=== PATIENT | male | born 1985 | race Caucasian/White ===

== ENCOUNTER 2018-01-18 10:33 | Emergency (ER) | payer SELFPAY ==
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
[2018-01-18] MEDS ORDERED: HYDROCODONE/APAP 7.5/325 MG TAB ONE (11:41)
--- NOTE | 2018-01-18 11:42 | RAD REPORT ---
EXAM DESCRIPTION: CT - CTFB CLINICAL HISTORY: PAIN COMPARISON: No comparisons TECHNIQUE: Axial 2 mm thick images of the face were obtained with sagittal and coronal reconstructio n images. All CT scans are performed using dose optimization technique as appropriate and may include automated exposure control or mA/KV adjustment according to patient size. FINDINGS: No acute facial bone fracture is seen.The mandible is intact. The globes and orbital contents are grossly unremarkable.Mild mucoperiosteal thickening is seen invol ving the right maxillary antrum and anterior ethmoid air cells. IMPRESSION: Negative for facial bone fracture.
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
== END 2018-01-18 12:11 | disposition home or self-care (01) ==
LOC: ER 10:33
DX: M54.5 Low back pain (principal); V69.49XA Driver of heavy transport vehicle injured in collision with other motor vehicles in traffic accident, initial encounter; F17.210 Nicotine dependence, cigarettes, uncomplicated
CPT/HCPCS: 70450; 70486; 72125; 72131; 76377; 99284

== ENCOUNTER 2019-09-15 21:09 | Emergency (ER) | payer BC ==
--- NOTE | 2019-09-15 22:27 | RAD REPORT ---
EXAM DESCRIPTION: RAD - Chest Single View - 09/15/2019 10:21 pm CLINICAL HISTORY: CHEST PAIN Chest pain. COMPARISON: <Comparisons> FINDINGS: Portable technique limits examination quality. The lungs are grossly clear. The heart is normal in size. No displaced fractures. IMPRESSION: No acute intrathoracic process suspected.
[2019-09-15 22:39] LABS: Protime INR 1.12
[2019-09-15 22:43] LABS: Absolute Lymphocytes (CBC) 3.2 K/uL (0.7-4.9); Basophils % 1.2 % (0-1.3); Hematocrit 44.2 % (39.6-49.0); Lymphocytes % 30.3 % (15.3-44.8); MPV 8.8 fL (7.6-11.3); RBC Red Blood Cell Count 5.15 M/uL (4.33-5.43)
[2019-09-15 22:52] LABS: ALT/SGPT 85 U/L (12-78); AST/SGOT 33 U/L (15-37); Albumin 3.6 g/dL (3.4-5.0); Alkaline Phosphatase 76 U/L (45-117); BUN Blood Urea Nitrogen 10 mg/dL (7-18); Bicarbonate 30 mmol/L (21-32); Bilirubin Direct < 0.1 mg/dL (0-0.2); Bilirubin Total 0.3 mg/dL (0.2-1.0); Glucose Level 105 mg/dL (74-106); Magnesium 2.1 mg/dL (1.8-2.4); NT PRO-BNP 30 pg/mL (<125); Potassium 3.8 mmol/L (3.5-5.1); Protein, Total 7.2 g/dL (6.4-8.2); Sodium Level 141 mmol/L (136-145); Troponin (Emerg Dept Use Only) < 0.02 ng/mL (0.0-0.045)
[2019-09-16] MEDS ORDERED: FENTANYL CITR 100 MCG/2 ML ONE (01:26)
--- NOTE | 2019-09-16 02:47 | EDPHYS ---
Physician Documentation [facility] Name: George Barkley Age: 34 yrs Sex: Male : 1985 Arrival Date: 09/15/2019 Time: 21:10 Bed 16 Private MD: ED Physician Heriberto Carias HPI: 09/15 01:15 This 34 yrs old Male presents to ER via Ambulatory with complaints of Chest snw Pain. 01:15 Onset: The symptoms/episode began/occurred suddenly, 1 week(s) ago, and became worse snw and became persistent. Associated signs and symptoms: Pertinent positives: chest pain. The patient has not experienced similar symptoms in the past. The patient has not recently seen a physician. pt states pain is under "right man boob" and radiates through to back. Historical: - Allergies: 09/14 21:19 No Known Allergies; mg2 - Home Meds: 21:19 HEARTBURN MEDICINE [Active]; mg2 - PMHx: 21:19 None; mg2 - PSHx: 21:19 None; mg2 - Immunization history:: Flu vaccine is up to date. - Social history:: Smoking status: Patient/guardian denies using tobacco, Patient/guardian denies using alcohol, street drugs, IV drugs. ROS: 09/15 01:12 Constitutional: Negative for fever, chills, and weight loss, Eyes: Negative for injury, snw pain, redness, and discharge, ENT: Negative for injury, pain, and discharge, Neck: Negative for injury, pain, and swelling, Cardiovascular: Negative for palpitations and edema, + chest pain Respiratory: Negative for shortness of breath, cough, wheezing, and pleuritic chest pain, : Negative for injury, bleeding, discharge, and swelling, MS/Extremity: Negative for injury and deformity, Skin: Negative for injury, rash, and discoloration, Neuro: Negative for headache, weakness, numbness, tingling, and seizure. Abdomen/GI: Positive for right upper quad pain with radiation through to back. Back: Positive for radiated pain, of the right subscapular area. Exam: 01:12 Constitutional: This is a well developed, well nourished patient who is awake, alert, snw and in no acute distress. Head/Face: Normocephalic, atraumatic. Eyes: Pupils equal round and reactive to light, extra-ocular motions intact. Lids and lashes normal. Conjunctiva and sclera are non-icteric and not injected. Cornea within normal limits. Periorbital areas with no swelling, redness, or edema. ENT: Nares patent. No nasal discharge, no septal abnormalities noted. Tympanic membranes are normal and external auditory canals are clear. Oropharynx with no redness, swelling, or masses, exudates, or evidence of obstruction, uvula midline. Mucous membranes moist. Neck: Trachea midline, no thyromegaly or masses palpated, and no cervical lymphadenopathy. Supple, full range of motion without nuchal rigidity, or vertebral point tenderness. No Meningismus. Chest/axilla: Normal chest wall appearance and motion. Nontender with no deformity. No lesions are appreciated. Cardiovascular: Regular rate and rhythm with a normal S1 and S2. No gallops, murmurs, or rubs. Normal PMI, no JVD. No pulse deficits. Respiratory: Lungs have equal breath sounds bilaterally, clear to auscultation and percussion. No rales, rhonchi or wheezes noted. No increased work of breathing, no retractions or nasal flaring. Back: No spinal tenderness. No costovertebral tenderness. Full range of motion. Skin: Warm, dry with normal turgor. Normal color with no rashes, no lesions, and no evidence of cellulitis. MS/ Extremity: Pulses equal, no cyanosis. Neurovascular intact. Full, normal range of motion. Neuro: Awake and alert, GCS 15, oriented to person, place, time, and situation. Cranial nerves II-XII grossly intact. Motor strength 5/5 in all extremities. Sensory grossly intact. Cerebellar exam normal. Normal gait. Psych: Awake, alert, with orientation to person, place and time. Behavior, mood, and affect are within normal limits. 01:12 Abdomen/GI: Inspection: obese Bowel sounds: normal, Palpation: mild abdominal tenderness, in the right upper quadrant, Indicators: Mehta's sign is positive. Vital Signs: 09/14 21:15 Pulse 91; Resp 18; Temp 97.2; Pulse Ox 97% ; Weight 136.08 kg; Height 6 ft. 0 in. mg2 (182.88 cm); Pain 6/10; 23:30 BP 151 / 99; Pulse 86; Resp 18; Pulse Ox 98% on R/A; Pain 6/10; ls4 09/15 00:09 BP 117 / 73; Pulse 66; Pulse Ox 98% ; ls4 02:35 BP 154 / 55; Resp 16; Pulse Ox 98% ; eb1 09/14 21:15 Body Mass Index 40.69 (136.08 kg, 182.88 cm) mg2 MDM: 09/14 22:01 Patient medically screened. snw 09/15 01:13 Data reviewed: vital signs, nurses notes. Data interpreted: Pulse oximetry: on room air snw is 98 %. Interpretation: acceptable. Counseling: I had a detailed discussion with the patient and/or guardian regarding: the historical points, exam findings, and any diagnostic results supporting the discharge/admit diagnosis, lab results, radiology results. Special discussion: Based on the patient's history, exam, and Dx evaluation, there is no indication for emergent intervention or inpatient Tx. It is understood by the patient/guardian that if the Sx's persist or worsen they need to return immediately for re-evaluation. Based on the patient's Hx, exam, and Dx evaluation, there is no indication for emergent surgery or inpatient Tx. It is understood by the patient/guardian that if the Sx's persist or worsen they need to return immediately for re-evaluation. Based on the history and exam findings, there is no indication for further emergent testing or inpatient evaluation. ED course: on re-exam to talk to pt about rapid rule out trop, he was rolling on the stretcher with severe right flank pain, will CT to eval for stone. 09/14 21:47 Order name: Basic Metabolic Panel snw 09/14 21:47 Order name: CBC with Diff snw 09/14 21:47 Order name: LFT's snw 09/14 21:47 Order name: Magnesium; Complete Time: 22:56 snw 09/14 21:47 Order name: NT PRO-BNP; Complete Time: 22:56 snw 09/14 21:47 Order name: PT-INR; Complete Time: 22:46 snw 09/14 21:47 Order name: Troponin (emerg Dept Use Only); Complete Time: 22:56 snw 09/14 21:47 Order name: XRAY Chest (1 view); Complete Time: 22:36 snw 09/14 21:48 Order name: Basic Metabolic Panel; Complete Time: 22:56 EDMS 09/14 21:48 Order name: CBC with Automated Diff; Complete Time: 22:56 EDMS 09/14 21:48 Order name: Liver (Hepatic) Function; Complete Time: 22:56 EDMS 09/14 22:07 Order name: US Abdomen Limited snw 09/15 00:29 Order name: Troponin (emerg Dept Use Only); Complete Time: 02:15 snw 09/15 01:11 Order name: CT Stone Protocol snw 09/14 21:47 Order name: EKG; Complete Time: 21:48 snw 09/14 21:47 Order name: Cardiac monitoring; Complete Time: 22:00 snw 09/14 21:47 Order name: EKG - Nurse/Tech; Complete Time: 22:00 snw 09/14 21:47 Order name: IV Saline Lock; Complete Time: 22:00 snw 09/14 21:47 Order name: Labs collected and sent; Complete Time: 22:00 snw 09/14 21:47 Order name: O2 Per Protocol; Complete Time: 22:00 snw 09/14 21:47 Order name: O2 Sat Monitoring; Complete Time: 22:00 snw 09/15 00:29 Order name: EKG - Nurse/Tech; Complete Time: 02:25 snw Administered Medications: 01:20 Drug: fentaNYL (PF) 50 mcg Route: IVP; Site: right antecubital; ls4 02:52 Drug: Magnesium Citrate Liquid 300 ml Route: PO; eb1 02:52 Drug: Simethicone 240 mg Route: PO; eb1 03:15 Drug: Bentyl 20 mg Route: PO; eb1 Disposition: 08:52 Co-signature as Attending Physician, Heriberto Carias MD I agree with the assessment and tw4 plan of care. Disposition: 09/16/19 02:47 Discharged to Home. Impression: Chest pain, unspecified, Upper abdominal pain, unspecified. - Condition is Stable. - Discharge Instructions: Abdominal Pain, Adult, Biliary Colic, Adult, Nonspecific Chest Pain, Constipation, Adult, Fat and Cholesterol Restricted Diet, Gastroesophageal Reflux Disease, Adult, Rehydration, Adult. - Prescriptions for Gas- X Extra Strength - take 240 milligram by ORAL route 2-3 times daily; 1 box. Bentyl 20 mg Oral Tablet - take 1 tablet by ORAL route every 6 hours As needed; 20 tablet. promethazine 25 mg Oral Tablet - take 1 tablet by ORAL route every 6 hours As needed; 20 tablet. - Work release form, Medication Reconciliation Form, Thank You Letter, Antibiotic Education, Prescription Opioid Use form. - Follow up: Emergency Department; When: As needed; Reason: Worsening of condition. Follow up: Private Physician; When: 2 - 3 days; Reason: Recheck today's complaints, Continuance of care, Re-evaluation by your physician. Signatures: Dispatcher [employer] EDMS Letty Hughes, PATIENT PARTNER-C PATIENT PARTNER-Csnw Heriberto Carias MD MD tw4 Danie Sheriff RN RN mg2 Anastasiia Angeles RN RN eb1 Jyoti Potter RN RN ls4 Corrections: (The following items were deleted from the chart) 03:40 02:47 09/16/2019 02:47 Discharged to Home. Impression: Chest pain, unspecified; Upper eb1 abdominal pain, unspecified. Condition is Stable. Discharge Instructions: Abdominal Pain, Adult, Nonspecific Chest Pain, Fat and Cholesterol Restricted Diet, Gastroesophageal Reflux Disease, Adult, Rehydration, Adult, Biliary Colic, Adult, Constipation, Adult. Prescriptions for Gas-X Extra Strength - take 240 milligram by ORAL route 2-3 times daily; 1 box, Bentyl 20 mg Oral Tablet - take 1 tablet by ORAL route every 6 hours As needed; 20 tablet, promethazine 25 mg Oral Tablet - take 1 tablet by ORAL route every 6 hours As needed; 20 tablet. and Forms are Work release form, Medication Reconciliation Form, Thank You Letter, Antibiotic Education, Prescription Opioid Use. Follow up: Emergency Department; When: As needed; Reason: Worsening of condition. Follow up: Private Physician; When: 2 - 3 days; Reason: Recheck today's complaints, Continuance of care, Re-evaluation by your physician. snw
--- NOTE | 2019-09-16 02:47 | ER ---
Nurse's Notes [facility] Name: George Barkley Age: 34 yrs Sex: Male : 1985 Arrival Date: 09/15/2019 Time: 21:10 Bed 16 Private MD: Diagnosis: Chest pain, unspecified;Upper abdominal pain, unspecified Presentation: 09/14 21:15 Chief complaint: Patient states: i have central chest pain radiating to the back mg2 started 5 hours ago. i also have shortness of breath and tingling sensation in the left hand. Coronavirus screen: Proceed with normal triage. Patient denies a cough. Patient reports shortness of breath or difficulty breathing. Patient denies measured and/or subjective temperature greater than 100.4F prior to today's visit. Patient denies travel on a cruise ship or to a country the [facility] currently lists as an affected area. Patient denies contact with known and/or suspected case of COVID-19. Ebola Screen: No symptoms or risks identified at this time. Initial Sepsis Screen: Does the patient meet any 2 criteria? No. Patient's initial sepsis screen is negative. Does the patient have a suspected source of infection? No. Patient's initial sepsis screen is negative. Risk Assessment: Do you want to hurt yourself or someone else? Patient reports no desire to harm self or others. Onset of symptoms was September 15, 2019. 21:15 Method Of Arrival: Ambulatory mg2 21:15 Acuity: JESSICA 3 mg2 Triage Assessment: 21:54 General: Appears in no apparent distress. comfortable, Behavior is calm, cooperative. ls4 Historical: - Allergies: 21:19 No Known Allergies; mg2 - Home Meds: 21:19 HEARTBURN MEDICINE [Active]; mg2 - PMHx: 21:19 None; mg2 - PSHx: 21:19 None; mg2 - Immunization history:: Flu vaccine is up to date. - Social history:: Smoking status: Patient/guardian denies using tobacco, Patient/guardian denies using alcohol, street drugs, IV drugs. Screenin:20 Abuse screen: Denies threats or abuse. Denies injuries from another. Nutritional ls4 screening: No deficits noted. Tuberculosis screening: No symptoms or risk factors identified. Fall Risk None identified. Assessment: 21:20 General: Appears in no apparent distress. uncomfortable, Behavior is calm, cooperative. ls4 Pain: Complains of pain in right upper quadrant Pain does not radiate. Pain currently is 7 out of 10 on a pain scale. Pain began gradually. Neuro: No deficits noted. Cardiovascular: Denies diaphoresis, fatigue, lightheadedness, nausea, palpitations, shortness of breath, syncope, vomiting, Capillary refill < 3 seconds Clubbing of nail beds is absent Patient's skin is warm and dry. Rhythm is sinus rhythm. Respiratory: Breath sounds are clear bilaterally. Denies cough, shortness of breath labored breathing. GI: Abdomen is non-distended, obese, Bowel sounds present X 4 quads. Abd is soft and non tender X 4 quads. Reports Pain is 7 out of 10 on a pain scale. pain under right ribs. : No deficits noted. No signs and/or symptoms were reported regarding the genitourinary system. EENT: No deficits noted. No signs and/or symptoms were reported regarding the EENT system. Derm: No deficits noted. No signs and/or symptoms reported regarding the dermatologic system. 22:00 Reassessment: Patient appears in no apparent distress at this time. Patient and/or ls4 family updated on plan of care and expected duration. Pain level reassessed. Patient is alert, oriented x 3, equal unlabored respirations, skin warm/dry/pink. 23:00 Reassessment: Patient appears in no apparent distress at this time. Patient and/or ls4 family updated on plan of care and expected duration. Pain level reassessed. Patient is alert, oriented x 3, equal unlabored respirations, skin warm/dry/pink. 09/15 00:03 Reassessment: Patient appears in no apparent distress at this time. Patient and/or ls4 family updated on plan of care and expected duration. Pain level reassessed. Patient is alert, oriented x 3, equal unlabored respirations, skin warm/dry/pink. 03:00 Reassessment: Patient appears in no apparent distress at this time. No changes from eb1 previously documented assessment. Patient and/or family updated on plan of care and expected duration. Pain level reassessed. Vital Signs: 09/14 21:15 Pulse 91; Resp 18; Temp 97.2; Pulse Ox 97% ; Weight 136.08 kg; Height 6 ft. 0 in. mg2 (182.88 cm); Pain 6/10; 23:30 BP 151 / 99; Pulse 86; Resp 18; Pulse Ox 98% on R/A; Pain 6/10; ls4 09/15 00:09 BP 117 / 73; Pulse 66; Pulse Ox 98% ; ls4 02:35 BP 154 / 55; Resp 16; Pulse Ox 98% ; eb1 09/14 21:15 Body Mass Index 40.69 (136.08 kg, 182.88 cm) mg2 ED Course: 09/14 21:10 Patient arrived in ED. bp1 21:18 Triage completed. mg2 21:19 Arm band placed on. mg2 21:20 roguer on. Pulse ox on. NIBP on. ls4 21:20 Patient has correct armband on for positive identification. Bed in low position. Call ls4 light in reach. Side rails up X2. Verbal reassurance given. Diet: Patient is NPO. 21:37 No apparent distress. ls4 21:37 No provider procedures requiring assistance completed. Inserted saline lock: 18 gauge ls4 in right antecubital area, using aseptic technique. Blood collected. 21:37 Initial lab(s) drawn, by ny, sent to lab. EKG done, by ED staff, reviewed by Heriberto Carias MD. Patient maintains SpO2 saturation greater than 95% on room air. 21:47 Letty Hughes FNP-C [facility]. snw 21:47 Heriberto Carias MD is Attending Physician. snw 21:53 Jyoti Potter, RN is Primary Nurse. ls4 22:00 Basic Metabolic Panel Sent. ls4 22:00 CBC with Diff Sent. ls4 22:00 LFT's Sent. ls4 22:21 XRAY Chest (1 view) In Process Unspecified. EDMS 23:29 US Abdomen Limited In Process Unspecified. EDMS 09/15 02:25 EKG done, by ED staff, reviewed by Heriberto Carias MD. ls4 02:41 CT Stone Protocol In Process Unspecified. EDMS 03:40 IV discontinued, intact, bleeding controlled, No redness/swelling at site. eb1 Administered Medications: 01:20 Drug: fentaNYL (PF) 50 mcg Route: IVP; Site: right antecubital; ls4 02:52 Drug: Magnesium Citrate Liquid 300 ml Route: PO; eb1 02:52 Drug: Simethicone 240 mg Route: PO; eb1 03:15 Drug: Bentyl 20 mg Route: PO; eb1 Outcome: 02:47 Discharge ordered by . lisa 03:39 Discharged to home ambulatory. eb1 03:39 Condition: good 03:39 Discharge instructions given to patient, Instructed on discharge instructions, follow up and referral plans. Demonstrated understanding of Prescriptions given X 3. 03:40 Patient left the ED. eb1 Signatures: Dispatcher [employer] EDMS Letty Hughes, NERY-C READING TUTOR-Csnw Danie Sheriff RN RN mg2 Anastasiia Angeles RN RN eb1 Jyoti Potter RN RN ls4 Faina Feng [facility] Corrections: (The following items were deleted from the chart) 00:09 07/02 21:19 BP 135 / 100; mg2 ls4
[2019-09-16] MEDS ORDERED: SIMETHICONE 80 MG TAB ONE (02:58)
[2019-09-16] MEDS ORDERED: MAGNESIUM CITRATE 300 ML BOT ONE (02:58)
[2019-09-16] MEDS ORDERED: DICYCLOMINE HCL 10 MG CAP ONE (03:32)
[2019-09-16 03:45] VITALS: TEMP 97.2
[2019-09-16 03:47] VITALS: O2SAT 98
[2019-09-16 03:49] VITALS: BP 154/55
--- NOTE | 2019-09-16 10:37 | RAD REPORT ---
EXAM DESCRIPTION: US - Abdomen Exam Limited - 09/15/2019 11:29 pm CLINICAL HISTORY: chest pain;Abd pain COMPARISON: Stone Protocol dated 09/16/2019 FINDINGS: The gallbladder demonstrates significant contraction with probable 7 mm polyp or stone pre sent. No pericholecystic fluid or gallbladder wall thickening. The common bile duct is normal measuri ng 4 mm. The liver demonstrates fatty infiltration. IMPRESSION: Contracted gallbladder with 7 mm stone or polyp suspected.
--- NOTE | 2019-09-16 19:52 | RAD REPORT ---
EXAM DESCRIPTION: CT ABDOMEN PELVIS WITHOUT IV CONTRAST CLINICAL HISTORY: FLANK PAIN TECHNIQUE: Contiguous axial images obtained through the abdomen and pelvis without IV contrast. Chhaya nal and sagittal reformatted images were provided. This exam was performed according to our departmental dose-optimization program, which includes autom ated exposure control, adjustment of the mA and/or kV according to patient size and/or use of iterati ve reconstruction technique. COMPARISON: None available for comparison. FINDINGS: Lung bases: Clear Liver: The liver is enlarged. Gallbladder and biliary system: The gallbladder is contracted. Pancreas: Grossly unremarkable Spleen: Grossly unremarkable Adrenals: Unremarkable Kidneys: No calculi. No hydronephrosis. Bowel: Moderate stool. No obstruction. No appreciable mucosal thickening. Appendix: Normal caliber appendix. No findings to suggest acute appendicitis. Urinary bladder: Unremarkable Reproductive: Unremarkable as visualized Lymph nodes: No pathologically enlarged lymph nodes. Peritoneum: No focal fluid collection. No free air. Vessels: No abdominal aortic aneurysm. Abdominal wall: Unremarkable Bones: Unremarkable IMPRESSION: 1. No renal, ureteral or bladder calculi. No evidence for renal obstruction. 2. Other findings as above. Electronically signed by: Justin Milligan MD 09/16/2019 2:56 AM CDT Due to temporary technical issues with the PACS/Fluency reporting system, reports are being signed by the in house radiologist without review as a courtesy to ensure prompt reporting. The interpreting r adiologist is fully responsible for the content of the report.
--- NOTE | 2019-09-17 08:58 | EKG ---
Test Date: 2019-09-16 Test Time: 02:19:33 Alarm Adjuster: SERINA MEASUREMENT RESULTS: Intervals: Rate: 77 AK: 158 QRSD: 92 QT: 404 QTc: 457 [place]: P: 19 AK: 158 QRS: 35 T: 50 INTERPRETIVE STATEMENTS: Normal sinus rhythm Normal ECG Compared to ECG 09/15/2019 21:54:11 No significant changes Electronically Signed On 09-17-19 08:55:32 CDT by Chuck Mast
--- NOTE | 2019-09-17 08:59 | EKG ---
Test Date: 2019-09-15 Test Time: 21:54:11 Passenger Rate Clerk: HARLEY MEASUREMENT RESULTS: Intervals: Rate: 74 CA: 148 QRSD: 96 QT: 386 QTc: 428 [place]: P: 22 CA: 148 QRS: 40 T: 51 INTERPRETIVE STATEMENTS: Normal sinus rhythm Normal ECG No previous ECG available for comparison Electronically Signed On 09-17-19 08:55:37 CDT by Chuck Mast
== END 2019-09-16 03:40 | disposition home or self-care (01) ==
LOC: ER 21:09
DX: R10.10 Upper abdominal pain, unspecified (principal)
CPT/HCPCS: 93005 ×2; 85025; 80048; 36415; 83735; 85610; 80076; 84484 ×2; 83880; 76377; 74176; 71045; 76705; 96374; 99285; J3010

== ENCOUNTER 2022-05-19 16:07 | Emergency (ER) | payer BC, SELFPAY ==
--- OUTSIDE RECORDS SUMMARY | 2022-05-19 16:12 | XMS REPORT | Continuity of Care Document ---
:1985 Author Organization [facility] t Address [address] [facility] [address] [place] [address] Care Team Providers Name Role Phone PCP, PATIENT DOES NOT HAVE A Primary Care Physician UnavailKevin Reynoso Attending Clinician Unavailable CAMMY SOLANO Attending Clinician Unavailable Cammy Solano PA-C Attending Clinician CHARANJIT ALVAREZ Attending Clinician Unavailable JENNIE OLIVAS Attending Clinician Unavailable SHANNON DAWKINS M.D. Attending Clinician Unavailable Kevin Fernandez Admitting Clinician Unavailable Payers Payer Name Policy Type Policy Number Effective Date Expiration Date S [facility] [id number] 2020 2020 00:00: 00 - OUT OF STATE 00:00:00 Problems Condition Condition Condition Status Onset Resolution Last Treating Co mments Source Name Details Category Date Date Treatment Clinician Date No known No known Disease Unive rs active active ity of problems problems [facility] Lumbar Lumbar Problem Active [facility] back back Physici sprain, sprain, ans initial initial encounter encounter Cervical Cervical Problem Active [facility] muscle muscle Physici strain, strain, ans initial initial encounter encounter Right Right Problem Active [facility] elbow pain elbow pain Ph ysici ans Lateral Lateral Problem Active [facility] epicondyli epicondyli Ph ysici tis of tis of ans right right elbow elbow Allergies, Adverse Reactions, Alerts Allergy Allergy Status Severity Reaction(s) Onset Inactive Treating Comm ents Source Name Type Date Date Clinician Sulfa DA Active [place] ABDOM 2021-03 [facility] (Sulfona PAIN/CRAMPS 0-19 Misael ar mide 00:00: Gant Antibiot 00 [facility] Sulfa DA Active IA ABDOM 2021-03 [facility] (Sulfona PAIN/CRAMPS 0-18 Misael ar mide 00:00: Gant Antibiot 00 Regiona ics) Formerly [facility] NO KNOWN Drug Active Univers ALLERGIE Class ity of S [facility] Social History Social Habit Start Date Stop Date Quantity Comments Source Exposure to Not sure [facility] SARS-CoV-2 (event) [facility] Sex Assigned At [birth year] [facility] 00:00:00 00:00:00 Medical Branch Smoking Status Start Date Stop Date Source Unknown if ever smoked [facility] Medications Ordered Filled Start Stop Current Ordering Indication Dosage Frequency Signature Comments Components Source Medication Medication Date Date Medication? Clinician (SIG) Name Name naproxen Yes naproxen Unive rs 500 mg 1-03 500 mg ity of tablet 13:15: tablet [place] 04 Take 1 Medical tablet BY Branch MOUTH twice a DAY cyclobenzap 2020-03 Yes 10mg Take 10 mg Univers rine 10 mg 2-16 by mouth 3 ity of tablet 00:00: (three) [place] 00 times Medical daily. Branch traMADoL 50 2020-03 Yes 50mg Take 50 mg Univers mg tablet 2-16 by mouth 2 ity of 00:00: (two) [place] 00 times Medical daily. Branch Meloxicam Meloxicam Yes SHANNON TAKE 1 UT 15 MG Oral 15 MG Oral 9-04 CUPIC M.D. TABLET BY Physici Tablet Tablet 00:00: MOUTH ans 00 AFTER MEAL. Cyclobenzap Cyclobenzap Yes SHANNON TAKE 1 UT rine HCl - rine HCl - 9-04 CUPIC M.D. TABLET BY Physici 10 MG Oral 10 MG Oral 00:00: MOUTH ans Tablet Tablet 00 EVERY NIGHT AT BEDTIME methylPREDN methylPREDN Yes SHANNON TAKE UT ISolone 4 ISolone 4 9-04 CUPIC M.D. DIRECTED Physici MG Oral MG Oral 00:00: ans Tablet Tablet 00 Therapy Therapy Pack Pack Cyclobenzap Cyclobenzap Yes SHANNON TAKE 1 UT rine HCl - rine HCl - 1-10 CUPIC M.D. TABLET BY Physici 10 MG Oral 10 MG Oral 00:00: MOUTH ans Tablet Tablet 00 EVERY NIGHT AT BEDTIME Etodolac Etodolac 2019-0 Yes SHANNON TAKE 1 UT 400 MG Oral 400 MG Oral 1-10 CUPIC M.D. TABLET BY Physici Tablet Tablet 00:00: MOUTH ans 00 TWICE A DAY NEEDED Nabumetone Nabumetone 2017- Yes SHANNON TAKE ONE UT 750 MG Oral 750 MG Oral 1-20 CUPIC M.D. TABLET Physici Tablet Tablet 00:00: TWICE A ans 00 DAY WITH FOOD AFTER MEDROL FINISHED Methocarbam Methocarbam 2017- Yes SHANNON 1 TAKE 1 UT ol 750 MG ol 750 MG 1-20 CUPIC M.D. TABLET Physici Oral Tablet Oral Tablet 00:00: BEDTIME ans 00 methylPREDN methylPREDN 2017- Yes SHANNON TAKE UT ISolone 4 ISolone 4 1-20 CUPIC M.D. DIRECTED Physici MG Oral MG Oral 00:00: ans Tablet Tablet 00 Therapy Therapy Pack Pack Immunizations Ordered Filled Immunization Date Status Comments [facility] e Immunization Name Name TDAP 2021-03-[address] [facility] 00:00:00 [facility] SARS-COV-2 COVID-19 2020-06-11 Completed Unive rsity of PFIZER VACCINE 00:00:00 [facility] SARS-COV-2 COVID-19 2020-05-21 Completed Unive rsity of PFIZER VACCINE 00:00:00 [facility] Vital Signs Vital Name Observation Time Observation Value Comments Source Systolic blood 2021-03-18 19:15:00 137 mm[Hg] Univer sity of pressure [facility] Diastolic blood 2021-03-18 19:15:00 83 mm[Hg] Unive rsity of pressure [facility] Heart rate 2021-03-18 19:15:00 70 /min [facility] Body temperature 2021-03-18 19:15:00 36.44 [facility] 2021-03-18 19:15:00 16 /min [facility] Body height 2021-03-18 19:15:00 185.4 cm [facility] Body weight 2021-03-18 19:15:00 70.534 kg [facility] BMI 2021-03-18 19:15:00 20.52 kg/m2 [facility] Oxygen saturation in 2021-03-18 19:15:00 100 /min [facility] blood by [facility] Pulse oximetry Branch Procedures Procedure Date / Time Performed Performing Clinician Beverley bell [id number] 2022-01-01 00:00:00 SIGIFREDOLEATHA CASTILLO Corinne [facility] [id number] 2022-01-01 00:00:00 SIGIFREDO Sun [facility] TDAP VACCINE, >11 2021-03-18 19:24:42 Cammy Solano [facility] YRS, IM Medical Branch Physical Therapy 2018-02-02 00:00:00 UT Physicia ns MRI Spine cervical wo 2018-02-02 00:00:00 UT Phy sicians contrast [id number] MRI Spine lumbar wo 2018-02-02 00:00:00 UT Physi cians contrast [id number] MR Elbow wo contrast 2018-02-02 00:00:00 [place] Phys icians [id number] Encounters Start End Encounter Admission Attending Care Care Encounter Source Date/Time Date/Time Type Type Clinicians Facility Department ID 2021-12-31 2022-01-02 Inpatient TR [facility] [id number] [facility] 19:28:00 19:22:00 Kevin Costello [facility] 2021-03-18 2021-03-18 Outpatient CAMMY HERNANDEZ [facility] [id number] Univers 13:00:00 15:01:19 ity [facility] 2021-03-18 2021-03-18 Office Cammy Solano [id number] Univers 13:00:00 13:30:00 Visit Alfredo PEDIATRIC [id number] ity of [id number] [id number] [facility] PRIMARY [address] Branch CARE CLINIC 2021-03-18 2021-03-18 Outpatient CAMMY HERNANDEZ [facility] [id number] Univers 13:00:00 13:00:00 ity [facility] 2021-03-15 2021-03-15 Outpatient CHARANJIT BELLO [facility] [id number] Univers 14:00:00 14:00:00 [facility] 2021-03-15 2021-03-15 Outpatient CHARANJIT BELLO [facility] [id number] Univers 14:00:00 14:00:00 [facility] 2020-06-11 2020-06-11 Outpatient Lito OLIVAS, [facility] [id number] Univers 07:00:00 07:00:00 JENNIE [facility] 2020-05-21 2020-05-21 Outpatient Lito OLIVAS, [facility] [id number] Univers 12:40:00 12:40:00 JENNIE [facility] 2018-11-17 2018-11-17 Appointmen ARMEN DAWKINS Orthopedics [id number] [place] 10:00:00 10:00:00 t; SHANNON DAWKINS M.D. [facility] Luz Elena [facility] julio c [place] 2018-05-13 2018-05-13 Appointmen ARMEN DAWKINS UTP [id number] [place] 13:15:00 13:15:00 t; SHANNON DAWKINS M.D. Physici ZORAN, ans M.D. 2018-03-25 2018-03-[facility] UTP [id number] [place] 11:15:00 11:15:00 t; SHANNON DAWKINS M.D. [facility] Luz Elena [facility] julio c [place] 2018-03-17 2018-03-17 Appointmen ARMEN DAWKINS [id number] [place] 10:45:00 10:45:00 t; SHANNON DAWKINS M.D. Physici ZORAN, ans M.D. 2018-02-02 2018-02-02 Appointmen ARMEN DAWKINS UTP [id number] [place] 07:30:00 07:30:00 t; SH[facility]. [facility] Results Test Description Test Time Test Comments Results Result Comments Source BASIC METABOLIC PANEL 2022-01-02 08:16:00 Test Item Value Reference Range Interpretation Comme nts SODIUM (test code = NA) 138 mEq/L 134-147 N POTASSIUM (test code = K) 4.2 mEq/L 3.4-5.0 N CHLORIDE (test code = CL) 103 mEq/L 100-108 N CARBON DIOXIDE (test code = CO2) 29 mEq/l 21-33 N ANION GAP (test code = GAP) 10 0-20 N GLUCOSE (test code = GLU) 116 mg/dL 70-110 H BLOOD UREA NITROGEN (test code = 8 mg/dL 7-18 BUN) GLOMERULAR FILTRATION RATE (test 109.4 105-110 N Units of measure = ml/min/1.73 code = GFR) m2 CREATININE (test code = CREAT) 0.8 mg/dL 0.6-1.3 N CALCIUM (test code = CA) 8.6 mg/dL 8.0-10.5 N CBC W/AUTO [id number] 07:02:00 Test Item Value Reference Range Interpretation Comments WHITE BLOOD CELL (test code = 11.2 x10 3/uL 4.5-11.0 H WBC) RED BLOOD CELL (test code = 4.24 x10 6/uL 4.00-5.60 N RBC) HEMOGLOBIN (test code = HGB) 12.6 g/dL 12.5-16.9 N HEMATOCRIT (test code = HCT) 37.3 % 37.5-50.7 L MEAN CELL VOLUME (test code = 88.0 fL 81.0-99.0 N MCV) MEAN CELL HGB (test code = MCH) 29.7 pg 27.0-33.0 N MEAN CELL HGB CONCETRATION 33.8 g/dL 33.0-37.0 N (test code = MCHC) RED CELL DISTRIBUTION WIDTH CV 12.7 % 11.5-14.5 N (test code = RDW) RED CELL DISTRIBUTION WIDTH SD 41.0 fL 37.0-54.0 N (test code = RDW-SD) PLATELET COUNT (test code = 298 x10 3/uL 150-400 N PLT) MEAN PLATELET VOLUME (test code 10.8 fL 7.0-9.0 H = MPV) NEUTROPHIL % (test code = NT%) 78.3 % 56.0-77.0 H IMMATURE GRANULOCYTE % (test 0.4 % 0.0-2.0 N code = IG%) LYMPHOCYTE % (test code = LY%) 12.7 % 14.0-32.0 L MONOCYTE % (test code = MO%) 8.2 % 4.8-9.0 N EOSINOPHIL % (test code = EO%) 0.1 % 0.3-3.7 L BASOPHIL % (test code = BA%) 0.3 % 0.0-2.0 N NUCLEATED RBC % (test code = 0.0 % 0-0 N NRBC%) NEUTROPHIL # (test code = NT#) 8.80 x10 3/uL 2.0-7.6 H IMMATURE GRANULOCYTE # (test 0.04 x10 3/uL 0.00-0.03 H code = IG#) LYMPHOCYTE # (test code = LY#) 1.42 x10 3/uL 1.0-3.8 N MONOCYTE # (test code = MO#) 0.92 x10 3/uL 0.1-0.8 H EOSINOPHIL # (test code = EO#) 0.01 x10 3/uL 0.0-0.2 N BASOPHIL # (test code = BA#) 0.03 x10 3/uL 0.0-0.2 N NUCLEATED RBC # (test code = 0.00 x10 3/uL 0.0-0.1 N NRBC#) MANUAL DIFF REQUIRED (test code NO = MDIFF) DRUGS OF ABUSE SCREEN [id number] 05:13:00 Test Item Value Reference Range Interpretation Comments URN COCAINE (test code POSITIVE NEGATIVE A = COCAURN) URN CANNABINOIDS (test POSITIVE NEGATIVE A code = CANNABURN) URN AMPHETAMINE (test NEGATIVE NEGATIVE code = AMPHETURN) URN BARBITURATE (test NEGATIVE NEGATIVE code = BARBITURN) URN BENZODIAZEPINE NEGATIVE NEGATIVE Cut-off v alue:200 (test code = BENZOURN) ng/mL URN OPIATES (test code POSITIVE NEGATIVE A Cut-o ff value:2000 = OPIATURN) ng/mL URN PHENCYCLIDINE (PCP) NEGATIVE NEGATIVE Cuto ffs:Barbiturates (test code = PHENCURN) 200 ng/mLBenzodiaze pines 200 ng/mLTHC Cannabinoids 50 ng/mLOpiates(Mo rphine) 2000 ng/mLAmphe tamine 1000 ng/mLCocai ne 300 ng/mLPCP phency clidine 25 ng/mL Unconf irmed screening resul ts shouldnot be us ed for non-medical pur poses. COMPREHENSIVE METABOLIC [id number] 05:09:00 Test Item Value Reference Range Interpretation Comments SODIUM (test code = NA) 143 mEq/L 134-147 N POTASSIUM (test code = 3.6 mEq/L 3.4-5.0 N K) CHLORIDE (test code = 107 mEq/L 100-108 N CL) CARBON DIOXIDE (test 30 mEq/l 21-33 N code = CO2) ANION GAP (test code = 10 0-20 N GAP) GLUCOSE (test code = 84 mg/dL 70-110 N GLU) BLOOD UREA NITROGEN 5 mg/dL 7-18 L (test code = BUN) GLOMERULAR FILTRATION 127.6 105-110 H Units of measure = RATE (test code = GFR) ml/mi n/1.73 m2 CREATININE (test code = 0.7 mg/dL 0.6-1.3 N CREAT) TOTAL PROTEIN (test 6.2 g/dL 6.4-8.2 L code = PROT) ALBUMIN (test code = 3.50 g/dL 3.4-5.0 N ALB) CALCIUM (test code = 8.5 mg/dL 8.0-10.5 N CA) BILIRUBIN TOTAL (test 0.40 mg/dL 0.0-1.0 N code = BILT) SGOT/AST (test code = 25 IUnit/L 15-37 N AST) SGPT/ALT (test code = 16 IUnit/L 30-65 L ALT) ALKALINE PHOSPHATASE 132 IUnit/L 20-125 H TOTAL (test code = ALKP) [id number] 05:09:00 Test Item Value Reference Range Interpretation Comments PHOSPHOROUS (test code = PHOS) 4.4 MG/DL 2.5-4.9 N [id number] 05:09:00 Test Item Value Reference Range Interpretation Comments MAGNESIUM (test code = MAG) 1.74 mg/dL 1.80-2.40 L CBC W/AUTO [id number] 04:55:00 Test Item Value Reference Range Interpretation Comments WHITE BLOOD CELL (test code = 8.7 x10 3/uL 4.5-11.0 WBC) RED BLOOD CELL (test code = 4.34 x10 6/uL 4.00-5.60 N RBC) HEMOGLOBIN (test code = HGB) 12.7 g/dL 12.5-16.9 N HEMATOCRIT (test code = HCT) 38.2 % 37.5-50.7 N MEAN CELL VOLUME (test code = 88.0 fL 81.0-99.0 N MCV) MEAN CELL HGB (test code = MCH) 29.3 pg 27.0-33.0 N MEAN CELL HGB CONCETRATION 33.2 g/dL 33.0-37.0 N (test code = MCHC) RED CELL DISTRIBUTION WIDTH CV 13.1 % 11.5-14.5 N (test code = RDW) RED CELL DISTRIBUTION WIDTH SD 42.4 fL 37.0-54.0 N (test code = RDW-SD) PLATELET COUNT (test code = 295 x10 3/uL 150-400 N PLT) MEAN PLATELET VOLUME (test code 9.8 fL 7.0-9.0 H = MPV) NEUTROPHIL % (test code = NT%) 70.1 % 56.0-77.0 N IMMATURE GRANULOCYTE % (test 0.2 % 0.0-2.0 N code = IG%) LYMPHOCYTE % (test code = LY%) 18.2 % 14.0-32.0 N MONOCYTE % (test code = MO%) 7.7 % 4.8-9.0 N EOSINOPHIL % (test code = EO%) 3.1 % 0.3-3.7 N BASOPHIL % (test code = BA%) 0.7 % 0.0-2.0 N NUCLEATED RBC % (test code = 0.0 % 0-0 N NRBC%) NEUTROPHIL # (test code = NT#) 6.07 x10 3/uL 2.0-7.6 N IMMATURE GRANULOCYTE # (test 0.02 x10 3/uL 0.00-0.03 N code = IG#) LYMPHOCYTE # (test code = LY#) 1.58 x10 3/uL 1.0-3.8 N MONOCYTE # (test code = MO#) 0.67 x10 3/uL 0.1-0.8 N EOSINOPHIL # (test code = EO#) 0.27 x10 3/uL 0.0-0.2 H BASOPHIL # (test code = BA#) 0.06 x10 3/uL 0.0-0.2 N NUCLEATED RBC # (test code = 0.00 x10 3/uL 0.0-0.1 N NRBC#) MANUAL DIFF REQUIRED (test code NO = MDIFF) - XR FLUOROSCOPY 0-60 [id number] 00:00:00 [facility] : 1985 Sex: M FAX: Kevin Fernandez [phone] [place]: St: ADM FAX: Melvin Vasquez [facility] [phone] Name: NICKOLAS MULLINS [facility] : 1985 Age/S: 36/M [address] [place] [address] Unit #: [id number] Loc: G.[address] [place] [address]Imzl: Melvin oHyos [facility] Acct: [id number] Dis Date: Status: ADM IN PHONE #: [phone] Exam Date: 01/01/20221902 FAX #: [phone] Reason: LEFT TIB FIB OPEN FRACTURE EXAMS: CPT CODE: [id number] XR FLUOROSCOPY 0-60 MIN 06379 PROCEDURE INFORMATION: Exam: FL Fluoroscopy, Up to 1 Hour Physician Time; Radiologist Not Present For Fluoroscopy Exam date and time: 01/01/2022 6:20 PM Age: 36 years oldClinical indication: Pain; Pain: Left tib fib open fracture TECHNIQUE: Imaging protocol: Fluoroscopy, up to 1 hour physician or other qualified health primary care physician time. This radiologist did not supervise this procedure. Exam supervised by facility personnel. Report for radiation dosage reporting and documentation only. Other technique: Radiologist was not present during this procedure. COMPARISON: No relevant prior studies available. RADIATION DOSE METRICS: Fluoroscopy time (seconds): seconds= 1 MIN 32 SEC Number of fluoro spot images: images= 13 Reference air kerma (DESMOND): 3.96 MGY FINDINGS:Procedural imaging: Fluoroscopic assistance was provided. Radiologist was not present during the procedure. Intraoperative review of these images was performed by the operating physician. Please refer to the procedure report for further details. Notes: Fluoroscopy supervised by facility personnel. Seealso separate procedure report. IMPRESSION: Fluoroscopy dosage documentation. See also separate procedure notes. at 2110 Reported and signed by: Davis Leary M.D. CC: Kevin BENNETT Romain Technologist: CHARLOTTE Tena) Trnscrd Date/Time/By: 01/01/2022 (2110) : By: [email or web address] Orig Print D/T: S: 01/01/2022 (2110) PAGE 1 Signed Report- XR TIBIA/FIBULA 2 V [id number] 00:00:00 [facility] : 1985 Sex: M FAX: Kevin Fernandez DO [phone] [place]: St: [facility] FAX: Melvin Vasquez [facility] [phone] Name: NICKOLAS MULLINS [facility] Corinne Gant : 1985 Age/S: 36/M [address] [place] [address] Unit #: [id number] Loc: [address] [address] Phys: Melvin Hoyos [facility] Acct: [id number] Dis Date: Status: ADM IN PHONE #: [phone] Exam Date: 01/01/20222014 FAX #: [phone] Reason: Postop EXAMS: CPT CODE: [id number] XR TIBIA/[place] [id number] PROCEDURE INFORMATION: Exam: XR Left Tibia and Fibula Exam date and time: 01/01/2022 7:58 PM Age: 36 years old Clinical indication: Other: Postop TECHNIQUE: Imaging protocol: Radiologic exam of the Left tibia and fibula. Views: 2 views. AP and Lateral COMPARISON: CR XR TIBIA/FIBULA 2 V LT 12/31/2021 6:48 PM FINDINGS: Bones/joints: Again seen comminuted fracture through the left tibia along the proximal and mid to distal diaphyses. Intramedullary nail with interlocking screws along the proximal and distal aspect of the tibia. Tibial alignment near anatomic. Again seen fracture of the distal fibular diaphysis. Soft tissues: Soft tissue swelling and emphysema around the tibia and knee. Notes: If there is further concern, recommend follow- up radiographs or MRI for complete assessment. IMPRESSION: 1. Again seen acute, comminuted fracture of the left tibia status post intramedullary nail. 2. Again seen fracture of the distal fibular diaphysis. at 2057 Reported and signed by: Boby Hoskins M.D. CC: Kevin Fernandez DO; Melvin Agrawal [facility] Romain Technologist: CHARLOTTE Lawrence) Trnscrd Date/Time/By: 01/01/2022 (2057) : By: [email or web address] Orig Print D/T: S: 01/01/2022 (2057) PAGE 1 Signed Report- XR HAND 3 + V [id number] 00:00:00 [facility] : 1985 Sex: M FAX: Danica Valentin APRN [place]: St: ADM FAX: Kevin Fernandez DO [phone] Name: NICKOLAS MULLINS [facility] : 1985 Age/S: 36/M [address] [place] [address] Unit #: [id number] Loc: [address] [address] Phys: Danica ValentinP Acct: [id number] Dis Date: Status: ADM IN PHONE #: [phone] Exam Date: FAX #: [phone] Reason: edema s/p JAIL EXAMS: CPT CODE: [id number] XR HAND 3 + V RT [id number] PROCEDURE INFORMATION: Exam: XR Right Hand Exam date and time: 01/01/2022 8:12 PM Age: 36 years old Clinical indication: Edema S/P senior living TECHNIQUE: Imaging protocol: XR Right hand. Views: 3 or more views. Frontal Oblique Lateral COMPARISON: No relevant prior studies available. FINDINGS: Bones/joints: Acute, comminuted fracture through the right hand 5th metacarpal proximally. Intra-articular extension of the comminuted fracture. Soft tissues: Soft tissue swelling around the 5th metacarpal proximally. Notes: If there is further concern, recommend follow-up radiographs or MRI for complete assessment. IMPRESSION: Acute, comminuted fracture through the right hand 5th metacarpal proximally. Intra-articular extension of the fracture. at 2056 Reported and signed by: Boby Hoskins M.D. CC: Danica Valentin; Kevin Fernandez DO Technologist: CHARLOTTE Lawrence) Trnscrd Date/Time/By: 01/01/2022 (2056) : By: [email or web address] Orig Print D/T: S: 01/01/2022 (2056) PAGE 1 Signed Report- XR WRIST 3 + V [id number] 00:00:00 [facility] : 1985 Sex: M FAX: Danica Valentin APRN [place]: St: ADM FAX: Kevin Fernandez DO [phone] Name: HARPREETNICKOLAS [facility] : 1985 Age/S: 36/M [address] [place] [address] Unit #: [id number] Loc: G.[address] [place] [address] Phys: Danica Valentin Acct: [id number] Dis Date: Status: ADM IN PHONE #: [phone] Exam Date: 01/01/20222014 FAX #: [phone] Reason: edema s/p JAIL EXAMS: CPT CODE: [id number] XR WRIST 3 + V RT [id number] PROCEDURE INFORMATION: Exam: XR Right Wrist Exam date and time: 01/01/2022 8:12 PM Age: 36 years old Clinical indication: Other: Edema S/P senior living TECHNIQUE: Imaging protocol: Radiologic exam of the Right wrist. Views: 3 or more views. Frontal Oblique Lateral COMPARISON: No relevant prior studies available. FINDINGS: Bones/joints: There is a fracture at the base of the 5th metacarpal with 4 mm of corticalseparation and periosteal reaction suggesting a subacute fracture. Soft tissues: There are no radio-opaque foreign bodies. Notes: If there is further concern, followup radiographs or MRI of the wrist may be performed for complete assessment. IMPRESSION: Subacute 5th metacarpal base fracture with findings consistent with healing, there is 4 mm of cortical separation of the fracture fragments. at 2056 Reported and signed by: Lena Mark M.D CC: Danica Fernandez DO Technologist: RT Howard(R) Trnscrd Date/Time/By: 01/01/2022 (2056) : By: [email or web address] Orig Print D/T: S: 01/01/2022 (2056) PAGE 1 Signed [id number] 19:23:00 Test Item Value Reference Range Interpretation Comments ALCOHOL (test < 3.0 mg/dL <10 N Ethyl Alcohol code = ALC) Interpretation: 100 mg/dL - Legally Intox icated 300-400 mg/dL - Severely Intoxicated &g t;400 mg/dL - Potenti ally LethalThe pharm acological response to blo od alcohol levels mayvary from individual to i ndividual. Signs of intoxi cationcan be observed at levels of 50-100 mg/dL. R esults are for Medical pur poses only, and not f or Legal orEmployment ev aluation purposes. BASIC METABOLIC [id number] 19:23:00 Test Item Value Reference Range Interpretation Comments SODIUM (test code = NA) 147 mEq/L 134-147 N POTASSIUM (test code = 4.0 mEq/L 3.4-5.0 N K) CHLORIDE (test code = 107 mEq/L 100-108 N CL) CARBON DIOXIDE (test 32 mEq/l 21-33 N code = CO2) ANION GAP (test code = 12 0-20 N GAP) GLUCOSE (test code = 86 mg/dL 70-110 N GLU) BLOOD UREA NITROGEN 8 mg/dL 7-18 N (test code = BUN) GLOMERULAR FILTRATION 109.4 105-110 N Units of measure = RATE (test code = GFR) ml/mi n/1.73 m2 CREATININE (test code = 0.8 mg/dL 0.6-1.3 N CREAT) CALCIUM (test code = 8.7 mg/dL 8.0-10.5 N CA) PROTHROMBIN [id number] 19:12:00 Test Item Value Reference Range Interpretation Comments PROTHROMBIN TIME 15.0 SECONDS 9.3-12.9 H PATIENT (test code = PTP) INTERNATIONAL NORMAL 1.3 0.8-1.2 H TARGET INR BY RATIO (test code = INDICATIO N Indication INR) INR1. Prophylax is of venous thrombos is 2.0 - 3.0 (orthoped ic surgery), Proph ylaxis of venous throm bosis (other than hig h-risk surgery), Treat ment of Deep Vein Thrombosis/Pulm onary Embolism, Preve ntion of systemic emb olism - Tissue heart va lves, Acute Myocardia l Infarction (to prevent systemic emboli sm), Valvular heart disease, Atrial Fibrillation, Bileaflet mecha nical valve in aortic position.2. Mec hanical prosthetic valv es (high risk), 2 .5 - 3.5 Presence of Lupus Anticoagulant o r Antiphospholipi d Antibodies, Pre vention of systemic emb olism - Acute Myocardia l Infarction (to prevent recurrent infar ct). THROMBOPLASTIN TIME [id number] 19:12:00 Test Item Value Reference Range Interpretation Comments THROMBOPLASTIN TIME 34.7 Seconds 25.0-39.5 N Therape utic Range: PARTIAL (test code = 50.4 - 88.3 Seconds PTT) Effective 06/29/2018 CBC W/AUTO [id number] 19:01:00 Test Item Value Reference Range Interpretation Comments WHITE BLOOD CELL (test code = 5.4 x10 3/uL 4.5-11.0 N WBC) RED BLOOD CELL (test code = 4.66 x10 6/uL 4.00-5.60 N RBC) HEMOGLOBIN (test code = HGB) 13.8 g/dL 12.5-16.9 N HEMATOCRIT (test code = HCT) 40.9 % 37.5-50.7 N MEAN CELL VOLUME (test code = 87.8 fL 81.0-99.0 N MCV) MEAN CELL HGB (test code = MCH) 29.6 pg 27.0-33.0 N MEAN CELL HGB CONCETRATION 33.7 g/dL 33.0-37.0 N (test code = MCHC) RED CELL DISTRIBUTION WIDTH CV 13.0 % 11.5-14.5 N (test code = RDW) RED CELL DISTRIBUTION WIDTH SD 41.7 fL 37.0-54.0 N (test code = RDW-SD) PLATELET COUNT (test code = 302 x10 3/uL 150-400 N PLT) MEAN PLATELET VOLUME (test code 9.1 fL 7.0-9.0 H = MPV) NEUTROPHIL % (test code = NT%) 61.9 % 56.0-77.0 N IMMATURE GRANULOCYTE % (test 0.4 % 0.0-2.0 N code = IG%) LYMPHOCYTE % (test code = LY%) 27.2 % 14.0-32.0 N MONOCYTE % (test code = MO%) 6.3 % 4.8-9.0 N EOSINOPHIL % (test code = EO%) 3.3 % 0.3-3.7 N BASOPHIL % (test code = BA%) 0.9 % 0.0-2.0 N NUCLEATED RBC % (test code = 0.0 % 0-0 N NRBC%) NEUTROPHIL # (test code = NT#) 3.35 x10 3/uL 2.0-7.6 N IMMATURE GRANULOCYTE # (test 0.02 x10 3/uL 0.00-0.03 N code = IG#) LYMPHOCYTE # (test code = LY#) 1.47 x10 3/uL 1.0-3.8 N MONOCYTE # (test code = MO#) 0.34 x10 3/uL 0.1-0.8 N EOSINOPHIL # (test code = EO#) 0.18 x10 3/uL 0.0-0.2 N BASOPHIL # (test code = BA#) 0.05 x10 3/uL 0.0-0.2 N NUCLEATED RBC # (test code = 0.00 x10 3/uL 0.0-0.1 N NRBC#) MANUAL DIFF REQUIRED (test code NO = MDIFF) - XR TIBIA/FIBULA 2 V [id number] 00:00:00 [facility] 1985 Sex: M FAX: Ramy Sadler MD [place]: St: ADM Name: NICKOLAS MULLINS [facility] : 1985 Age/S: 36/M [address] [place] [address] Blvd Unit #: [id number] Loc: [place] [address] Phys: Ramy Sadler MD Acct: [id number] Dis Date: Status: ADM IN PHONE #: [phone] Exam Date: 12/31/2021 1905 FAX #: [phone] Reason: LEG PAIN EXAMS: CPT CODE: [id number] XR TIBIA/FIBULA 2 V LT [id number] PROCEDURE INFORMATION: Exam: XR Left Tibia and Fibula Exam date and time: 12/31/2021 6:48 PM Age: 36 years old Clinical indication: Pain; Lower leg; Left; Additional info: Leg pain TECHNIQUE: Imaging protocol: Radiologic exam of the Left tibia and fibula. Views: 2 views. AP and Lateral COMPARISON: No relevant prior studies available. FINDINGS: Bones/joints: Acute, comminuted fracture of the left tibia along the proximal and mid to distal diaphyses. No significant displacement of the dominant middle fracture fragment of the tibia. Approximately 2.0 cm lateral displacement of the distal tibial fracture fragment. Acute, comminuted fracture of the distal fibular diaphysis with approximately 4 mm lateral displacement of the distal fracture fragment. Soft tissues: Soft tissue swelling around the mid to distal tibia and fibula. Notes: If there isfurther concern, recommend follow- up radiographs or MRI for complete assessment. IMPRESSION: Acute, comminuted fractures of the left tibia and fibula. at 194 Reported and signed by: Boby Hoskins M.D. CC: Ramy Sadler MD Technologist: Aida Noriega, RT(R); Karishma Hernandez RT(R); ... Trnscrd Date/Time/By: 12/31/2021 (1948) : By: [email or web address] Orig Print D/T: S: 12/31/2021 (1949) PAGE 1 Signed Report- XR CHEST 1 [id number] 00:00:00 [facility] : 1985 Sex: M FAX: Ramy Sadler MD [place]: St: ADM Name: NICKOLAS MULLINS [facility] : 1985 Age/S: 36/M [address] [place] [address] Unit #: [id number] Loc: [place] [address] Phys: Ramy Sadler MD Acct: [id number] Dis Date: Status: ADM IN PHONE #: [phone] Exam Date: 12/31/20211904 FAX #: [phone] Reason: CHEST PAIN EXAMS: CPT CODE: [id number] XR CHEST 1 V [id number] PROCEDURE INFORMATION: Exam: XR Chest Exam date and time: 12/31/2021 6:40 PM Age: 36 years old Clinical indication: Pain; Chest pressure; Chest pain TECHNIQUE: Imaging protocol: Radiologic exam of the chest. Views: 1 view. COMPARISON: No relevant prior studies available. FINDINGS: Lungs: No focal consolidation. Pleural spaces: No pleural effusion. Nopneumothorax. Heart/Mediastinum: Cardiac and mediastinal contours within normal limits. Bones/joints: No acute osseous abnormality. IMPRESSION: No radiographic evidence of acute cardiopulmonary disease. at 1950 Reported and signed by: Cassie Bernal CC: Ramy Sadler MD Technologist: RT Nas(R) Trnscrd Date/Time/By: 12/31/2021 (1950) : By: [email or web address] Orig Print D/T: S: 12/31/2021 (1950) PAGE 1 Signed Report- XR PELVIS 1/2 VIEWS 2021-12-31 00:00:00 [facility] : 1985 Sex: M FAX: Ramy Sadler MD [place]: St: REG Name: NICKOLAS MULLINS [facility] : 1985 Age/S: 36/M [address] [place] [address] BlvdUnit #: [id number] Loc: [place] [address] Phys: Ramy Sadler MD Acct: [id number] Dis Date: Status: REG ER PHONE #: [phone] Exam Date: 12/31/2021 190 FAX #: [phone] Reason: PELVIC PAIN EXAMS: CPT CODE: [id number] XR PELVIS 1/2 VIEWS 59997 PROCEDURE INFORMATION: Exam: XR Pelvis Exam date and time: 12/31/2021 6:48 PM Age: 36 years old Clinical indication: Pelvic pain TECHNIQUE: Imaging protocol: Radiologic exam of the pelvis. Views: 1 or 2 view. Other technique: A frontal radiographof the pelvis was obtained. COMPARISON: No relevant prior studies available. FINDINGS: Bones/joints:The pelvic ring is intact. There is no evidence of fracture or other acute process. The hips are grossly normal. If there is a suspected abnormality or injury involving either hip, specific radiographsof the affected hip are suggested. There are postoperative change involving the lower lumbosacral spine. Soft tissues: Unremarkable. Notes: If there is further concern, recommend follow-up radiographs or MRI for complete assessment. IMPRESSION: 1. No osseous abnormalities are seen involving the pelvis. 2. Postoperative change involving the lower lumbosacral spine. at 1922 Reported and signed by: Octaviano Amador M.D. CC: Delphine Sadler MD Technologist: RT Nas(R) Trnscrd Date/Time/By: 12/31/2021 (1921) : By: [email or web address] Orig Print D/T: S: 12/31/2021 (1921) PAGE 1 Signed Report
[2022-05-19] MEDS ORDERED: LORazepam 2 MG/ML VIAL ONE ×2 (16:18→16:40)
[2022-05-19] MEDS ORDERED: NA CHLORIDE 0.9% 1,000 ML ONE (16:18)
[2022-05-19 16:39] LABS: Absolute Lymphocytes (CBC) 3.5 K/uL (0.7-4.9); Hematocrit 42.8 % (39.6-49.0); Lymphocytes % 15.8 % (15.3-44.8); RBC Red Blood Cell Count 5.09 M/uL (4.33-5.43)
[2022-05-19 16:42] LABS: Protime INR 1.06
[2022-05-19 16:56] LABS: SARS-CoV-2 Antigen Rapid Res Negative (Negative)
[2022-05-19] MEDS ORDERED: SUCCINYLCHOLINE 20 MG/ML (10 ML) IV ONE (17:26)
[2022-05-19] MEDS ORDERED: Ringers Lactate 1,000 ML IV ONE ×3 (17:26→21:23)
[2022-05-19 17:27] LABS: ALT/SGPT 30 U/L (16-61); AST/SGOT 20 U/L (15-37); Albumin 3.7 g/dL (3.4-5.0); Alkaline Phosphatase 222 U/L (45-117); BUN Blood Urea Nitrogen 7 mg/dL (7-18); Bicarbonate 24 mmol/L (21-32); Bilirubin Direct 0.2 mg/dL (0-0.2); Bilirubin Total 0.4 mg/dL (0.2-1.0); Glomerular Filtration Rate 113 ml/min (=/>90); Glucose Level 98 mg/dL (74-106); Potassium 3.9 mmol/L (3.5-5.1); Sodium Level 139 mmol/L (136-145)
[2022-05-19] MEDS ORDERED: propofoL 1,000 MG/100 ML VIAL IV ONE ×2 (17:27→20:47)
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
[2022-05-19] MEDS ORDERED: MIDAZOLAM HCL 2 MG/2 ML INJ ONE (17:54)
[2022-05-19 18:51] LABS: Arterial Blood Carboxyhemoglob 0.5 % (0-1.5); Blood Gas Oxyhemoglobin 91.7 % (94-97); Blood O2 Saturation 94.8 % (92-98.5)
[2022-05-19] MEDS ORDERED: MIDAZOLAM HCL 100 MG in NA CHLORIDE 0.9% 80 ML IV SCH (19:00)
[2022-05-19 19:20] LABS: Urine Blood Negative (Negative); Urine Glucose Negative (Negative); Urine Protein Negative (Negative); Urine pH 5.5 (5.0-7.0)
[2022-05-19 19:41] LABS: Barbiturates NEGATIVE (NEGATIVE); Benzodiazepines POSITIVE (NEGATIVE); Cocaine POSITIVE (NEGATIVE); METHAMPHETAM NEGATIVE (NEGATIVE); Methadone NEGATIVE (NEGATIVE); Opiates NEGATIVE (NEGATIVE); Phencyclidine NEGATIVE (NEGATIVE); THC Cannibis NEGATIVE (NEGATIVE)
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
[2022-05-19 20:06] LABS: Blood Morphology Comment NOTED (NOT SEEN); Platelet Estimate INCR; Poikilocytosis 1+
--- NOTE | 2022-05-19 20:07 | RAD REPORT ---
EXAM DESCRIPTION: Amber Single View05/19/2022 6:51 pm CLINICAL HISTORY: Device placement endotracheal tube placement COMPARISON: 2019 FINDINGS: The lungs appear clear of acute infiltrate. The heart is normal size Endotracheal tube has its tip 5 centimeters into the stomach Endotracheal tube at the level of aortic arch
[2022-05-19 23:30] VITALS: O2SAT 100
[2022-05-19 23:38] VITALS: BP 129/94; TEMP 98.2
--- NOTE | 2022-05-20 17:34 | EKG ---
Test Date: 2022-05-19 Test Time: 18:00:45 Blocker Hand: BP MEASUREMENT RESULTS: Intervals: Rate: 133 DC: 136 QRSD: 84 QT: 314 QTc: 467 [place]: P: 68 DC: 136 QRS: 69 T: 55 INTERPRETIVE STATEMENTS: Sinus tachycardia Cannot rule out Anterior infarct, age undetermined Abnormal ECG Compared to ECG 09/16/2019 02:19:33 Myocardial infarct finding now present Sinus rhythm no longer present Electronically Signed On 05-20-22 17:31:59 [employer] by Vignesh Velez
== END 2022-05-19 22:54 ==
LOC: ER 16:07
PROC: 0BH17EZ Insertion of Endotracheal Airway into Trachea, Via Natural or Artificial Opening (ICD-10-PCS; principal; 2022-05-19)
PROC: 5A1935Z Respiratory Ventilation, Less than 24 Consecutive Hours (ICD-10-PCS; 2022-05-19)
DX: R41.82 Altered mental status, unspecified (principal); T40.5X1A Poisoning by cocaine, accidental (unintentional), initial encounter; J96.90 Respiratory failure, unspecified, unspecified whether with hypoxia or hypercapnia
CPT/HCPCS: 31500; 36415; 51702; 70450; 71045; 72125; 80048; 80076; 80307; 81003; 82550; 82805; 83605; 85025; 85610; 85730; 87040; 87811; 93005; 94002; 96361; 96365; 96366; 96375; 99285; G0480; J0330; J2250; J2704; J7030; J7120

== ENCOUNTER 2022-08-22 16:20 | Emergency (ER) | payer SELFPAY ==
--- OUTSIDE RECORDS SUMMARY | 2022-08-22 16:24 | XMS REPORT | Continuity of Care Document ---
:1985 Author Organization Formerly [facility] t Address [address] [facility] [address] [place] [id number] Care Team Providers Name Role Phone CAMMY SOLANO Primary Care Physician Unavailable Tri Fletcher LVN Attending Clinician KARIS HUNTLEY Attending Clinician Unavailable KARIS HUNTLEY Attending Clinician Unavailable Karis Huntley DO Attending Clinician Kevin Fernandez Attending Clinician Unavailable CAMMY SOLANO Attending Clinician Unavailable Cammy Solano PA-C Attending Clinician CHARANJIT ALVAREZ Attending Clinician Unavailable JENNIE OLIVAS Attending Clinician Unavailable SHANNON DAWKINS M.D. Attending Clinician Unavailable KARIS HUNTLEY Admitting Clinician Unavailable Karis Huntley DO Admitting Clinician Kevin Fernandez Admitting Clinician Unavailable Payers Payer Name Policy Type Policy Number Effective Date Expiration Date S [facility] MEDICAID PENDING PENDING 2022 2022 00:00:00 00:00:00 [place] - [id number] 2020 2020 OUT OF STATE 00:00:00 00:00:00 Problems Condition Condition Condition Status Onset Resolution Last Treating Co mments Source Name Details Category Date Date Treatment Clinician Date Drug Drug Disease Active Univers overdose overdose 3-07 ity of of of 00:00: [place] undetermin undetermin 00 Me dical ed intent, ed intent, Br anch initial initial encounter encounter No known No known Disease Unive rs active active ity of problems problems [facility] Lumbar Lumbar Problem Active [place] back back [...] Type Date Date Clinician Sulfa DA Active [place] ABDOM 2021-03 [facility] (Sulfona PAIN/CRAMPS 0-19 Misael ar mide 00:00: [place] Antibiot 00 Regiona ics) [facility] Sulfa DA Active [place] ABDOM 2021-03 [facility] (Sulfona PAIN/CRAMPS 0-18 Misael ar mide 00:00: [place] Antibiot 00 Regiona ics) [facility] NO KNOWN Drug Active Univers ALLERGIE Class ity of S [facility] Social History Social Habit Start Date Stop Date Quantity Comments Source History [facility]OH [facility] Medical B ranch Together History SDOH [facility] Medica l Branch History SDOH Social Unive rsity of [facility] h Membership History SDOH Social Unive rsity of [facility] Meetings [facility] freddy Branch Exposure to 2022-05-12 2022-05-22 Not sure [facility] SARS-CoV-2 (event) 00:00:00 14:12:00 Medica l Branch History SDOH Alcohol 2022-05-20 2022-05-20 3 [facility] Frequency 00:00:00 00:00:00 Medical Branch History SDOH Alcohol 2022-05-20 2022-05-20 1 [facility] Std Drinks 00:00:00 00:00:00 Medical Branch History SDOH Alcohol 2022-05-20 2022-05-20 1 Univ ersity [facility] Binge 00:00:00 00:00:00 Medical Branch History SDOH Social 2022-05-20 2022-05-20 5 [facility] Connections Phone 00:00:00 00:00:00 Medical Branch History SDOH Social 2022-05-20 2022-05-20 7 [facility] [place] Connections Living 00:00:00 00:00:00 Medica l Branch History SDOH Physical 2022-05-20 2022-05-20 0 [facility] Activity DPW 00:00:00 00:00:00 Medical Bran ch History SDOH Physical 2022-05-20 2022-05-20 0 [facility] Activity MPS 00:00:00 00:00:00 Medical Bran ch History SDOH 2022-05-20 2022-05-[address] [facility] Financial 00:00:00 00:00:00 Medical Branch History SDOH Food 2022-05-20 2022-05-20 1 [facility] 00:[facility]:00 00:00:00 Medical Branch History SDOH Food 2022-05-20 2022-05-20 1 Univers ity [facility] Scarcity 00:00:00 00:00:00 Medical Branch History SDOH 2022-05-20 2022-05-[address] [facility] Transport Med 00:00:00 00:00:00 Medical Bra nch History SDOH 2022-05-20 2022-05-[address] [facility] Transport Non-Med 00:00:00 00:00:00 Medical Branch Sex [birth year] [facility] 00:00:00 00:00:00 Medical Branch Smoking Status Start Date Stop Date Source Tobacco smoking consumption [facility] Medical unknown Branch Medications Ordered Filled Start Stop Current Ordering Indication Dosage Frequency Signature Comments Components Source Medication Medication Date Date Medication? Clinician (SIG) Name Name naproxen Yes naproxen Unive rs 500 mg 3-09 500 mg ity of tablet 14:48: tablet [place] 25 Take 1 Medical tablet BY Branch MOUTH twice a DAY naproxen 2023-0 Yes naproxen Unive rs 500 mg 05-22 500 mg ity of tablet 14:48: tablet [place] 25 Take 1 Medical tablet BY Branch MOUTH twice a DAY buprenorphi 2022- No 4mg 4 mg, Univ ers ne HCL 05-22 Sublingual ity of (SUBUTEX) 09:00: 08:42 , ONCE, 1 [place] sublingual 00 :00 dose, On Medic al tablet 4 mg Olivia 05/22/22 Br anch at 0300, Routine buprenorphi Yes 4mg 4 mg, Unive rs ne HCL 05-22 Sublingual ity of (SUBUTEX) 04:30: , BID, [place] sublingual 00 First dose Med ical tablet 4 mg (after Branch last modificati on) on Thu05/21/22 at 2230, Until Discontinu ed, Routine nicotine Yes 1{patch 1 Patch, Un miles (NICODERM) 05-22 } Topical, ity o f 21 mg/24 hr 04:00: Administer [place] patch 1 00 over 24 Medical Patch Hours, Branch Q24H, First dose on Thu05/21/22 at 2200, Until Discontinu ed, Routine phenoL Yes 1{spray 1 [place], Univ ers (SORE 05-22 } Oral, PRN, ity of THROAT 03:31: Starting [place] (PHENOL)) 10 on Thu Medical 1.4 % spray 05/21/22 at [facility] bottle 1 2131, [place] Until Discontinu ed, Routine, Sore throat buprenorphi 2022- No [id number] 4mg Place 2 Univers ne HCL 2 mg 05-22 tablets ity of sublingual 00:00: 04:59 under the [place] tablet 00 :00 tongue in Medical the Branch morning and 2 tablets in the evening. Do all this for 4 days. propranoloL 2022- No [id number] 10mg Take 1 Univers 10 mg 05-22 tablet by ity of tablet 00:00: 04:59 mouth in [place] 00 :00 the Medical morning Branch and 1 tablet in the evening. Do all this for 4 days. buprenorphi 0 2022- No [id number] 4mg Place 2 Univers ne HCL 2 mg 05-22 tablets ity of sublingual 00:00: 04:59 under the [place] tablet 00 :00 tongue in Medical the Branch morning and 2 tablets in the evening. Do all this for 4 days. propranoloL 2022- No [id number] 10mg Take 1 Univers 10 mg 05-22 tablet by ity of tablet 00:00: 04:59 mouth in [place] 00 :00 the morning Branch and 1 tablet in the evening. Do all this for 4 days. buprenorphi 2022- No 4mg 4 mg, Univ ers ne HCL 05-21 Sublingual ity of (SUBUTEX) 21:19: 21:52 , ONCE, 1 [place] sublingual 00 :00 dose, On Medic al tablet 4 mg Thu05/21/22 Br anch at 1530, Routine NaCl 0.9% Yes 10mL 10 mL, Univer s (NS) 3-08 Slow IV ity of injection 20:41: Push, PRN, [place] 10 mL 03 Starting Medical on Thu05/21/22 at 1441, Until Discontinu ed, Routine, line maintenanc e lidocaine Yes 5mL 5 mL, Univers 1% (PF) 308 Subcutaneo ity of (XYLOCAINE) 20:41: [place], PRN, [place] injection 5 02 Starting Medi freddy mL on Thu05/21/22 at 1441, Until Discontinu ed, Routine, Local anesthesia dexMEDEtomi 2022- No .2ug/kg 0.2-1.5 Univers dine 200 05-21-09 /h mcg/kg/hr ity o f mcg in 0.9 20:04: 01:21 ?70 kg [place] % NaCl 50 27 :42 (3.5-26.25 Medi freddy mL mL/hr), IV Branch (PRECEDEX) Infusion, RTU IV TITRATE, infusion Sedation-R ASS score (0 to -1), Starting on Thu05/21/22 at 1404
In itiate infusion at 0.2 mcg/kg/hr and titrate by 0.1 mcg/kg/hr every 30 minutes to goal sedation score. Maximum dose = 1.5 mcg/kg/hr. If goal not maintained at maximum allowed dose, contact prescriber .
ketamine 2022- No 3ug/kg/ 3 Unive rs (KETALAR) 05-21-08 min mcg/kg/min ity of 200 mg in 17:00: 19:04 ?70 kg [place] NaCl 0.9% 00 :44 (6.3 Medical (NS) 100 mL mL/hr), IV Br anch ICU ADULT Infusion, PAIN CONTINUOUS infusion , Starting on Thu05/21/22 at 1100
No elsie physician of psychotomi metic effects: hallucinat ions, vivid dreams, dysphoria. To be administer ed in the ICU, OR, and ED only.
heparin Yes 5000U 5,000 Univers (porcine) 3-08 Units, ity of injection 14:00: [place]cutaneo [place] 5,000 Units 00 us, Q12H, Med ical First dose Branch on Thu05/21/22 at 0800, Until Discontinu ed, Routine propofoL IV 2022- No 5ug/kg/ 5-50 Un miles infusion 05-21-09 min mcg/kg/min ity of 10:36: 01:21 ?70 kg [place] 22 :18 (2.1-21 Medical mL/hr), IV Branch Infusion, TITRATE, Sedation-R ASS score (-2 to -3), Starting on Thu05/21/22 at 0436
In itiate infusion at 5 mcg/kg/min and titrate by 5 mcg/kg/min every 30 seconds to 10 minutes to goal sedation score. Maximum dose = 50 mcg/kg/min . If goal not maintained at maximum allowed dose, contact prescriber . &nbs p;Tubing and unused portions of vials should be discarded after 12 hours.
midazolam 2022- No 1mg/h 1-10 mg/hr Univers (VERSED) 05-21-09 (1-10 ity of STD 50mg in 10:36: 01:21 mL/hr), IV [place] NaCl 0.9% 15 :18 Infusion, Medic al (NS) 50 mL TITRATE, Branc h infusion Sedation-R RTU ASS score (-2 to -3), Starting on Thu05/21/22 at 0436
In itiate infusion at 1 mg/hr and titrate by 1 mg/hr every 3 minutes to 10 minutes to goal sedation score. Maximum dose = 10 mg/hr.&nbs p; If goal not maintained at maximum allowed dose, contact prescriber .
acetaminoph Yes 650mg 650 mg, Un miles en 05-20 Oral, ity of (TYLENOL) 23:45: Q6HPRN, [place] 160 mg/5 mL 53 Starting Medi freddy oral liquid on Thu 650 mg 05/20/22 at 1745, Until Discontinu ed, Routine, Temp > 38.5 C ketamine 2022- No 2ug/kg/ 2 Unive rs (KETALAR) 05-20 03-08 min mcg/kg/min ity of 200 mg in 21:00: 16:51 ?70 kg [place] NaCl 0.9% 00 :18 (4.2 Medical (NS) 100 mL mL/hr), IV Br anch ICU ADULT Infusion, PAIN CONTINUOUS infusion , Starting on Thu05/20/22 at 1500
No elsie physician of psychotomi metic effects: hallucinat ions, vivid dreams, dysphoria. To be administer ed in the ICU, OR, and ED only.
pantoprazol Yes 40mg 40 mg, Univ ers e 05-20 Enteral, ity of (PROTONIX) 20:00: DAILY, [place] 2 mg/mL 00 First dose Medica l oral on Thu suspension 05/20/22 at 40 mg 1400, Until Discontinu ed, Routine heparin 2022- No 5000U 5,000 Univers (porcine) 05-20-07 Units, ity of injection 14:00: 14:10 Subcutaneo [place] 5,000 Units 00 :13 us, Q12H, Med ical First dose Branch on Thu05/20/22 at 0800, Until Discontinu ed, Routine propofoL IV 2022- No 5ug/kg/ 5-50 Un miles infusion 05-20 03-08 min mcg/kg/min ity of 08:42: 10:36 ?70 kg [place] 36 :34 (2.1-21 Medical mL/hr), IV Branch Infusion, TITRATE, Sedation-R ASS score (0 to -1), Starting on Thu05/20/22 at 0242
In itiate infusion at 5 mcg/kg/min and titrate by 5 mcg/kg/min every 30 seconds to 10 minutes to goal sedation score. Maximum dose = 50 mcg/kg/min . If goal not maintained at maximum allowed dose, contact prescriber . &nbs p;Tubing and unused portions of vials should be discarded after 12 hours.
hydralAZINE 2022- No 10mg 10 mg, Uni vers (APRESOLINE 05-20- Slow IV ity of ) injection 08:30: 07:51 Push, [place] 10 mg 00 :00 ONCE, 1 Medical dose, On Branch Thu05/20/22 at 0230, STAT midazolam 2022- No 1mg/h 1-10 mg/hr Univers (VERSED) 05-20 (1-10 ity of STD 50mg in 07:18: 10:36 mL/hr), IV [place] NaCl 0.9% 22 :34 Infusion, Medic al (NS) 50 mL TITRATE, Branc h infusion Sedation-R RTU ASS score (0 to -1), Starting on Thu05/20/22 at 0118
In itiate infusion at 1 mg/hr and titrate by 1 mg/hr every 3 minutes to 10 minutes to goal sedation score. Maximum dose = 10 mg/hr.&nbs p; If goal not maintained at maximum allowed dose, contact prescriber .
naproxen Yes naproxen Unive rs 500 mg 1-03 500 mg ity of tablet 13:15: tablet [place] 04 Take 1 Medical tablet BY Branch MOUTH twice a DAY cyclobenzap 2020-03 Yes 10mg Take 10 mg Univers rine 10 mg 2-16 by mouth 3 ity of tablet 00:00: (three) [place] 00 times Medical daily. Branch traMADoL 50 2020-03 Yes 50mg Take 50 mg Univers mg tablet 2-16 by mouth 2 ity of 00:00: (two) [place] 00 times Medical daily. Branch cyclobenzap 2020-03 Yes 10mg Take 10 mg Univers rine 10 mg 2-16 by mouth 3 ity of tablet 00:00: (three) [place] 00 times Medical daily. Branch traMADoL 50 2020-03 Yes 50mg Take 50 mg Univers mg tablet 2-16 by mouth 2 ity of 00:00: (two) [place] 00 times Medical daily. Branch cyclobenzap 2020-03 Yes 10mg Take 10 mg Univers rine 10 mg 2-16 by mouth 3 ity of tablet 00:00: (three) [place] 00 times Medical daily. Branch traMADoL 50 2020-03 Yes 50mg Take 50 mg Univers mg tablet 2-16 by mouth 2 ity of 00:00: (two) [place] 00 times Medical daily. Branch Meloxicam Meloxicam [...] 00 EVERY NIGHT AT BEDTIME Etodolac Etodolac Yes SHANNON TAKE 1 [place] 400 MG Oral 400 MG Oral 1-10 CUPIC M.D. TABLET BY Physici Tablet Tablet 00:00: MOUTH ans 00 TWICE A DAY NEEDED Nabumetone Nabumetone 2017-03 Yes SHANNON TAKE ONE [place] 750 MG Oral 750 MG Oral 1-20 CUPIC M.D. TABLET Physici Tablet Tablet 00:00: TWICE A ans 00 DAY WITH FOOD AFTER MEDROL FINISHED Methocarbam Methocarbam 2017-03 Yes SHANNON 1 TAKE 1 [place] ol 750 MG ol 750 MG 1-20 CUPIC M.D. TABLET Physici Oral Tablet Oral Tablet 00:00: BEDTIME ans 00 methylPREDN methylPREDN 2017-03 Yes SHANNON TAKE [place] ISolone 4 ISolone 4 1-20 CUPIC M.D. DIRECTED Physici MG Oral MG Oral 00:00: ans Tablet Tablet 00 Therapy Therapy Pack Pack Immunizations Ordered Filled Immunization Date Status Comments [facility] e Immunization Name Name TD 2021-03-18 Completed [facility] 00:00:00 [facility] TDAP 2021-03-18 Completed [facility] 00:00:00 [facility] TDAP 2021-03-18 Completed [facility] 00:00:00 [facility] SARS-COV-2 COVID-19 2020-06-11 Completed Unive rsity of PFIZER VACCINE 00:00:00 [facility] SARS-COV-2 COVID-19 2020-06-11 Completed Unive rsity of PFIZER VACCINE 00:00:00 [facility] SARS-COV-2 COVID-19 2020-06-11 Completed Unive rsity of PFIZER VACCINE 00:00:00 [facility] SARS-COV-2 COVID-19 2020-05-21 Completed Unive rsity of PFIZER VACCINE 00:00:00 [facility] SARS-COV-2 COVID-19 2020-05-21 Completed Unive rsity of PFIZER VACCINE 00:00:00 [facility] SARS-COV-2 COVID-19 2020-05-21 Completed Unive rsity of PFIZER VACCINE 00:00:00 [facility] Vital Signs Vital Name Observation Time Observation Value Comments Source Systolic blood 2022-05-22 14:00:00 141 mm[Hg] Univer sity of pressure [facility] Diastolic blood 2022-05-22 14:00:00 96 mm[Hg] Unive rsity of pressure [facility] Heart rate 2022-05-22 14:00:00 76 /min [facility] Body temperature 2022-05-22 14:00:00 36.5 Rosalba [facility] Respiratory rate 2022-05-22 14:00:00 26 /min [facility] Oxygen saturation in 2022-05-22 14:00:00 97 /min [facility] Arterial blood by [facility] Pulse oximetry [place] Body height 2022-05-20 06:00:00 185.4 cm [facility] Body weight 2022-05-20 06:00:00 70 kg [facility] BMI 2022-05-20 06:00:00 20.36 kg/m2 [facility] Systolic blood 2021-03-18 19:15:00 137 mm[Hg] Univer sity [facility] Diastolic blood 2021-03-18 19:15:00 83 mm[facility]Hg[facility] 2021-03-18 19:15:00 70 /min [facility] Body temperature 2021-03-18 19:15:00 36.44 Rosalba [facility] Respiratory rate 2021-03-18 19:15:00 16 /min [facility] Body height 2021-03-18 19:15:00 185.4 cm [facility] Body weight 2021-03-18 19:15:00 70.534 kg [facility] BMI 2021-03-18 19:15:00 20.52 kg/m2 [facility] Oxygen saturation in 2021-03-18 19:15:00 100 /min [facility] blood by [facility] Pulse oximetry Branch Procedures Procedure Date / Time Performing Clinician Source Performed BASIC METABOLIC PANEL 2022-05-21 10:07:00 Bert Kendrick [facility] (NA, K, CL, CO2, Medical Branch GLUCOSE, BUN, CREATININE, CA) ACUTE CARE ARTERIAL 2022-05-21 10:07:00 Marvin Siddiqui [facility] BLOOD GAS Medical Branch CBC WITHOUT DIFF 2022-05-21 10:07:00 Bert Kendrick [facility] CT HEAD WO CONTRAST 2022-05-21 06:17:00 Bridgette Hatch [facility] XR KUB 2022-05-20 17:43:00 Bridgette Hatch [facility] XR KUB 2022-05-20 15:09:00 Faina Rothman [facility] XR ANKLE <3 VW LEFT 2022-05-20 15:09:00 Bert Kendrick [facility] XR TIBIA FIBULA 2 VW 2022-05-20 15:09:00 Bert Kendrick [facility] BLOOD CULTURE SCREEN 2022-05-20 11:46:00 Merry Gonzalez [facility] URINE DRUG (IMMUNOASSAY) 2022-05-20 11:46:00 [facility] SCREEN URINALYSIS 2022-05-20 11:46:00 [facility] 1 VW 2022-05-20 07:15:00 [facility] CHEST 1 VW 2022-05-20 07:15:00 [facility] CREATINE KINASE 2022-05-20 06:59:00 Faina Rothman [facility] COMP. METABOLIC PANEL 2022-05-20 06:59:00 Merry Gonzalez [facility] ([id number]) [facility] CBC WITH DIFF 2022-05-20 06:59:00 [facility] PROT[facility] TIME / INR 2022-05-20 06:59:00 Merry Gonzalez [facility] ACTIVATED PARTIAL 2022-05-20 06:59:00 Merry Gonzalez [facility] THRMPLAS ERNESTINA [facility] MRSA / MSSA SCREEN BY 2022-05-20 06:59:00 [facility] [id number] 2022-01-01 00:00:00 SIGIFREDO CASTILLO [facility] [id number] 2022-01-01 00:00:00 SIGIFREDO CASTILLO [facility] TDAP VACCINE, >11 YRS, 2021-03-18 19:24:42 [facility] Physical Therapy 2018-02-02 00:00:00 [facility] Phys[facility] ns MRI Spine cervical wo 2018-02-02 00:00:00 [facility] Ph[facility] contrast [id number] MRI Spine lumbar wo 2018-02-02 00:00:00 [facility] Physi cians contrast [id number] MR Elbow wo contrast 2018-02-02 00:00:00 [facility] [id number] Encounters Start End Encounter Admission Attending Care Care Encounter Source Date/Time Date/Time Type Type Clinicians Facility Department ID 2022-06-30 2022-06-30 Outpatient [facility] [id number] Jose 11:48:01 11:48:01 [id number] F [place] 2022-06-02 2022-06-02 Outpatient [facility] [id number] Jose 11:31:31 11:31:31 [id number] F [place] 2022-05-26 2022-05-26 Outpatient [facility] [id number] Jose 11:38:32 11:38:32 [id number] F [place] 2022-05-23 2022-05-23 Transition MICHA Fletcher [id number] Univers 00:00:00 00:00:00 of Care Trigordon VELASCO [id number] ity [facility] [id number] [id number] [facility] 403 Branch 2022-05-20 2022-05-22 In[facility] [address] [id number] Univers 00:15:00 14:30:00 KARIS HUNTLEY i ty of [facility] 2022-05-20 2022-05-22 Hospital NISHANT Huntley [id number] Univers 00:15:00 14:30:00 Encounter Karis KAHN [id number] ity of [facility] [id number] Ricardo as [id number] [facility] 086 Branch 2021-12-31 2022-01-02 [facility] [id number] [facility] 19:28:00 19:22:[address] [place] [address] 2021-03-18 2021-03-18 Outpatient R SOLANOCAMMY ZHANG [facility] [id number] Univers 13:00:00 15:01:19 ity [facility] 2021-03-18 2021-03-18 Office Cammy Solano [id number] Univers 13:00:00 13:30:00 Visit Ali PEDIATRIC [id number] ity of [place] [id number] [place] AD[place] [id number] [place] [id number] Branch CARE CLINIC 2021-03-18 2021-03-18 Outpatient R CAMMY SOLANO [facility] [id number] Univers 13:00:00 13:00:00 ity [facility] 2021-03-15 2021-03-15 Outpatient R CHARANJIT ALVAREZ [facility] [id number] Univers 14:00:00 [facility]:00[facility] 2021-03-15 2021-03-15 Outpatient R CHARANJIT ALVAREZ [facility] [id number] Univers 14:00:00 14:00:00 ity [facility] 2020-06-11 2020-06-11 Outpatient R BRENDON [facility] [id number] Univers 07:00:00 07:00:[address] [facility] 2020-05-21 2020-05-21 Outpatient R BRENDON [facility] [id number] Univers 12:40:00 12:40:[address] [facility] 2018-11-17 2018-11-17 AppointARMEN [facility] [id number] [place] 10:00:00 10:00:00 t; SHANNON DAWKINS M.D. [facility] Luz Elena ORTEGA [place] julio c [place] 2018-05-13 2018-05-13 AppointARMEN [facility] UTP [id number] [place] 13:15:00 13:15:00 t; SHANNON DAWKINS M.D. Physici ZORAN, ans M.D. 2018-03-25 2018-03-25 AppointARMEN [facility] UTP [id number] [place] 11:15:00 11:15:00 t; SHANNON DAWKINS M.D. [facility] Physici SHANNONHowie BUCKNER M.D. 2018-03-17 2018-03-17 Appointmen [facility] [id number] [place] 10:45:00 10:45:00 t; SHANNON DAWKINS M.D. Physici ZORAN, ans M.D. 2018-02-02 2018-02-02 [facility] UTP [id number] [place] 07:30:00 07:30:00 t; SHANNON DAWKINS M.D. [facility] Luz Elena ORTEGA Riflemonique bunch M.D. Results Test Description Test Time Test Comments Results Result Comments Source HIV 1/2 4TH GEN, RFLX CONF 2022-05-24 09:47:43 Test Item Value Reference Range Interpretation Comme nts HIV 1/2 4TH GEN, RFLX CONF (test code = 3514) NON-REACTIVE NON-REAC TIVE HEPATITIS PANEL, [id number] 09:47:43 Test Item Value Reference Interpretation Comments Range HEPATITIS A TOTAL REACTIVE NON-REACTIVE A AB (test code = 2725) HEPATITIS B SURF AG NON-REACTIVE NON-REACTIVE (test code = 2739) HEP B CORE TOTAL AB NON-REACTIVE NON-REACTIVE (test code = 2729) HEPATITIS B SURFACE REACTIVE NON-REACTIVE A AB (test code = 2737) HEPATITIS C NON-REACTIVE NON-REACTIVE ANTIBODY (test code = 4675) INTERPRETATION (NOTE) Hepatitis A serology HEPATITIS A: (test consisten t with past code = 2552) exposure or previousvaccina tion to hepatitis A vir us. No evidence of cur rent acutehepatitis A infection. INTERPRETATION (NOTE) Hepatitis B serology HEPATITIS B: (test consisten t with immunity code = 98584) to hepatitis B from previous hepati tis B vaccination. INTERPRETATION (NOTE) Hepatitis C serology HEPATITIS C: (test shows no evidence of code = 39523) exposure to he patitisC virus at this t yosef. It can take up to 12 months after exposure tothe hepatitis C vir us for antibodies to b ecome detectable in t he blood in certain shelly ents. HEPATITIS A [id number] 09:47:43 Test Item Value Reference Range Interpretation Comments HEPATITIS A IgM NON-REACTIVE NON-REACTIVE CPL has important (test code = 2728) pathology staff changes effecti ve 05/14/2022. New pathology staff will provide uninter rupted, excellent patie nt care and clinical consultation. S ee URL: [email or web address] UNLES S OTHERWISE INDIC ATED, ALL TESTING PER FORMED AT [facility] hopTo, [facility]. [address] [place] [address] CYRUS KO DIRECTOR: Cassie PANG EDNA NUMBER [id number] CAP ACCREDITATION N O. [id number] COMPREHENSIVE METABOLIC [id number] 05:23:47 Test Item Value Reference Range Interpretation Comments GLUCOSE (test code = 75 MG/DL 70-99 2216) BUN (test code = 10 MG/DL 6-20 2207) CREATININE (test 0.61 MG/DL 0.80-1.40 L code = 2214) eGFR (2020 CKD-EPI) 127 >60 (test code = 38564) ML/MIN/1.73 CALC BUN/CREAT (test 16 RATIO 6-28 code = 2235) SODIUM (test code = 141 MEQ/L [phone]) POTASSIUM (test code 3.4 MEQ/L 3.5-5.4 L = 8) CHLORIDE (test code 98 MEQ/L 95-107 = 2215) CARBON DIOXIDE (test 27 MEQ/L 19-31 code = 2206) CALCIUM (test code = 8.6 MG/DL 8.5-10.5 2208) PROTEIN, TOTAL (test 6.1 G/DL 6.1-8.3 code = 2229) ALBUMIN (test code = 3.8 G/DL 3.5-5.2 2200) CALC GLOBULIN (test 2.3 G/DL 1.9-3.7 code = 2240) CALC A/G RATIO (test 1.7 RATIO 1.0-2.6 code = 2234) BILIRUBIN, TOTAL 0.3 MG/DL See_Comment [Automated message] (test code = 2207) The syste m which generated this result transmit na reference range : <=1.2. The refe rence range was not u sed to interpret th is result as normal/abnormal . ALKALINE PHOSPHATASE 187 U/L 40-117 H (test code = 2204) AST (test code = 25 U/L 9-50 2217) ALT (test code = 20 U/L 5-50 2219) CBC W/AUTO DIFF WITH [id number] 02:42:28 Test Item Value Reference Range Interpretation Comments WBC (test code = 15.6 K/UL 3.5-11.0 H 1001) RBC (test code = 4.65 M/UL 4.50-6.10 1002) HEMOGLOBIN (test code 13.2 G/DL 13.5-17.0 L = 1003) HEMATOCRIT (test code 39.3 % 40.0-51.0 L = 1004) MCV (test code = 84.5 fL 80.0-99.0 1005) MCH (test code = 28.4 PG 25.0-33.0 1006) MCHC (test code = 33.6 G/DL 31.0-36.0 1007) RDW (test code = 14.8 % 11.5-15.0 1038) NEUTROPHILS (test 75.0 % code = 1008) LYMPHOCYTES (test 16.0 % code = 1010) MONOCYTES (test code 7.0 % = 1011) EOSINOPHILS (test 1.2 % code = 1012) BASOPHILS (test code 0.4 % = 1013) IMMATURE GRANULOCYTES 0.4 % (test code = 1036) NUCLEATED RBCS (test 0.0 /100 WBC'S See_Comment [Aut omated code = 1065) message] The sy stem which generated this result transmitted reference range : 0.0. The refere nce range was not u sed to interpret th is result as normal/abnormal . PLATELET COUNT (test 290 K/UL 130-400 code = 1015) ABSOLUTE NEUTROPHILS 11.67 K/UL 1.50-7.50 H (test code = 1066) ABSOLUTE LYMPHOCYTES 2.49 K/UL 1.00-4.00 (test code = 1067) ABSOLUTE MONOCYTES 1.09 K/UL 0.20-1.00 H (test code = 1068) ABSOLUTE EOSINOPHILS 0.18 K/UL 0.00-0.50 (test code = 1040) ABSOLUTE BASOPHILS 0.06 K/UL 0.00-0.20 (test code = 1069) ABS IMMATURE 0.06 K/UL 0.00-0.10 GRANULOCYTES (test code = 1020) ABS NUCLEATED RBCS 0.00 K/UL 0.00-0.11 (test code = 65371) Acute Care Arterial Blood Gas.2022-05-21 10:15:53 Test Item Value Reference Range Interpretation Comments PH (test code = 2) 7.49 7.35-7.45 H PCO2 (test code = 32 See_Comment L [Automate d message] [id number]) The system [employer] generated this result transmitted ref erence range: 35 - 45 mmHg. The reference r jennifer was not used to interpret this result as normal/abnor mal. PO2 (test code = 189 See_Comment H [Automated message] 5904821114) The system [employer] generated this result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 210 Acetaminophen 1,000 MG Q6H 12/31 193 AC 12/31 PO 01/30 1929 210 Hydromorphone HCl 0.5 MG Q4H PRN PRN 12/31 1929 AC IV 01/05 1929 Oxycodone HCl 5 MG Q6H PRN PRN 12/31 1929 AC PO 01/05 1929 Oxycodone HCl 10 MG Q6H PRN PRN 12/31 1929 AC 1 PO 01/05 1929 2223 Tramadol HCl 50 MG Q6H 12/31 1929 AC 12/31 PO 01/05 1929 210 Fentanyl Citrate 100 MCG X1ED STA 01/01 1848 DC 12/31 IV 12/31 1848 184 Morphine Sulfate 4 MG X1ED STA 12/31 1846 DC IV 12/31 Fentanyl Citrate 0 .STK-MED ONE 01/01 1844 DC IV Electrolytic, Caloric, And Patel Sig/Gilmer Start time Last Medication Dose Route Stop Time Status Admin Lactated Ringer's 1,000 ML .Q10H 01/01 0005 AC IV 01/30 1929 Sodium Chloride 20 ML ASDIR 12/31 1929 AC IV 01/30 1929 Sodium Chloride 20 ML X1ED STA 01/01 1848 DC IV 12/31 Sodium Chloride 1,000 ML X1ED STA 12/31 1846 DC 12/31 IV 12/31 Gastrointestinal Drugs Sig/Gilmer Start time Last Medication Dose Route Stop Time Status Admin Polyethylene Glycol 17 GM DAILY 01/01 09 AC PO 01/31 0859 Ondansetron HCl 4 MG Q4H PRN PRN 12/31 1929 AC IV 01/30 1929 Serums, Toxoids, And Vaccines Sig/Gilmer Start time Last Medication Dose Route Stop Time Status Admin Diphtheria/Tetanus/ 0.5 ML X1ED STA 12/31 1846 DC 12/31 Acell Pertussis IM 01/01 1848 190 Vitamins Sig/Gilmer Start time Last Medication Dose Route Stop Time Status Admin Multivitamins 1 TAB DAILY 01/01 900 AC PO 01/31 0859 Patient Discharge Departure Vital Signs/Condition Vital Signs First Documented: Result Date Time Pulse Ox 99 12/31 1841 B/P 140/83 12/31 1841 B/P Mean 102 12/31 1841 O2 Delivery Room air 12/31 1841 Temp 36.4 12/31 1841 Pulse 55 12/31 1841 Resp 18 12/31 1841 Last Documented: Result Date Time Pulse Ox 95 12/31 1909 B/P 113/79 12/31 1909 B/P Mean 91 12/31 1909 Pulse 48 12/31 1909 Resp 20 12/31 1909 O2 Delivery Room air 12/31 1841 Temp 36.4 12/31 1841 All vital signs available at the time of this en try have been reviewed. Clinical Impression Clinical Impression Primary Impression: Open tibial fracture Disposition Decision Admit Admit Physician Name Kevin Fernandez DO )( Admission Accepts Yes )( Accepted Time 1915 )( Accepted Date 12/31/21 Call Information agrees with eval, agrees with plan Electronically Signed by Ramy Sadler MD on at 2303 RPT #:[id number] END OF REPORT
[2022-08-22 17:43] LABS: Calcium Oxalate Crystals- Ur Many /HPF (None Seen); Specific Gravity 1.023 (1.005-1.030); Urine Bacteria None Seen /HPF (<20); Urine Bilirubin NEGATIVE (Negative); Urine Blood 3+ (OVER) (Negative); Urine Clarity Extremely Turbid (Clear); Urine Color Light-Orange (Yellow); Urine Glucose NEGATIVE (Negative); Urine Mucus Slight /HPF (None Seen); Urine Protein 1+ (Negative); Urine RBC >50 /HPF (None Seen); Urine Urobilinogen Normal (Normal); Urine pH 5.5 (5.0-7.0)
[2022-08-22] MEDS ORDERED: ONDANSETRON 4 MG/2 ML VIAL ONE (18:14)
[2022-08-22] MEDS ORDERED: NA CHLORIDE 0.9% 1,000 ML ONE (18:14)
[2022-08-22] MEDS ORDERED: FAMOTIDINE 20 MG/2 ML VIAL IV ONE (18:14)
[2022-08-22] MEDS ORDERED: KETOROLAC 30 MG/ML INJ ONE ×2 (18:14→18:18)
[2022-08-22 18:20] LABS: Absolute Lymphocytes (CBC) 1.9 K/uL (0.7-4.9); Hematocrit 28.2 % (39.6-49.0); Lymphocytes % 16.7 % (15.3-44.8); MCV 88.8 fL (80-100); MPV 7.1 fL (7.6-11.3); RBC Red Blood Cell Count 3.18 M/uL (4.33-5.43)
[2022-08-22 18:35] LABS: Albumin 2.9 g/dL (3.4-5.0); Bilirubin Total 0.4 mg/dL (0.2-1.0); Potassium 3.8 mEq/L (3.5-5.1); Protein, Total 5.7 g/dL (6.4-8.2)
--- NOTE | 2022-08-22 19:46 | RAD REPORT ---
EXAM DESCRIPTION: CT - Abdomen Pelvis W Contrast - 08/22/2022 7:33 pm CLINICAL HISTORY: Abdominal pain COMPARISON: 2019 TECHNIQUE: Computed axial tomography of the abdomen pelvis was obtained. 100 cc Isovue-300 was admin istered intravenously. Oral contrast was not requested which limits evaluation of bowel and appendix All CT scans are performed using dose optimization technique as appropriate and may include automated exposure control or mA/KV adjustment according to patient size. FINDINGS: Fatty liver Spleen, pancreas, adrenals and right kidney unremarkable. 2 millimeter calculus left kidney. No hydronephrosis. Gastric bypass. Distal thoracic esophagus is dilated and fluid-filled. Postsurgical changes lumbar spine. Moderate amount of stool within the colon. Nonspecific edema within mesentery and subcutaneous tissues. Several loops of small bowel within the pelvis mildly dilated. IMPRESSION: Gastric bypass Distal thoracic esophagus is dilated fluid-filled Small nonobstructing left renal calculus Moderate amount stool within the colon Mild nonspecific dilatation of several loops of small bowel. If the patient's symptoms persist then a followup abdominal plain film series would be recommended
--- NOTE | 2022-08-22 20:18 | EDPHYS ---
Physician Documentation [facility] Name: George Barkley Age: 37 yrs Sex: Male : 1985 Arrival Date: 08/22/2022 Time: 16:20 Bed Treatment Private MD: ED Physician Daniele Franco HPI: 08/22 17:00 This 37 yrs old Male presents to ER via Ambulatory with complaints of Abdominal Pain, cp Flank Pain, Back Pain, Nausea/Vomiting. 17:00 The patient presents with abdominal pain in the lower abdomen. Onset: The cp symptoms/episode began/occurred 2 hour(s) ago. Associated signs and symptoms: Pertinent positives: nausea and vomiting, low back pain times 2 days, Pertinent negatives: blood in stools, chest pain, diarrhea, testicular pain. The symptoms are described as constant. Severity of pain: in the emergency department the pain is unchanged despite home interventions. Historical: - Allergies: 16:52 No Known Allergies; ld1 - PMHx: 16:52 None; ld1 - PSHx: 16:52 Gastric bypass; ld1 - Immunization history:: Adult Immunizations up to date, Client reports receiving the 2nd dose of the Covid vaccine. - Social history:: Smoking status: Patient denies any tobacco usage or history of. Patient/guardian denies using tobacco, Patient uses street drugs, Oxycodone, Patient/guardian denies using alcohol. ROS: 17:05 Constitutional: Negative for body aches, chills, fever, poor PO intake. cp 17:05 Eyes: Negative for injury, pain, redness, and discharge. cp 17:05 ENT: Negative for drainage from ear(s), ear pain, sore throat, difficulty swallowing, difficulty handling secretions. 17:05 Cardiovascular: Negative for chest pain, edema, palpitations. 17:05 Respiratory: Negative for cough, shortness of breath, wheezing. 17:05 Abdomen/GI: Positive for abdominal pain, nausea, vomiting, of the right lower quadrant and left lower quadrant, Negative for diarrhea, constipation, anorexia. 17:05 Back: Positive for pain at rest, pain with movement, of the low back area, Negative for injury or acute deformity, decreased range of motion. 17:05 : Negative for urinary symptoms, testicular pain 17:05 Neuro: Negative for altered mental status, dizziness, headache, numbness, weakness. 17:05 All other systems are negative. Exam: 17:10 Constitutional: The patient appears in no acute distress, alert, awake, non-toxic, well cp developed, well nourished, uncomfortable. 17:10 Head/Face: Normocephalic, atraumatic. cp 17:10 Eyes: Periorbital structures: appear normal, Conjunctiva: normal, no exudate, no injection, Sclera: no appreciated abnormality, Lids and lashes: appear normal, bilaterally. 17:10 ENT: External ear(s): are unremarkable, Nose: is normal, Mouth: Lips: moist, Oral mucosa: pink and intact, moist, Posterior pharynx: is normal, airway is patent, no erythema, no exudate. 17:10 Neck: ROM/movement: is normal, is supple, without pain, no range of motions limitations. 17:10 Chest/axilla: Inspection: normal. 17:10 Cardiovascular: Rate: normal, Rhythm: regular. 17:10 Respiratory: the patient does not display signs of respiratory distress, Respirations: normal, no use of accessory muscles, no retractions, labored breathing, is not present, Breath sounds: are clear throughout, no decreased breath sounds, no stridor, no wheezing. 17:10 Abdomen/GI: Inspection: abdomen appears normal, Bowel sounds: active, all quadrants, Palpation: soft, in all quadrants, moderate abdominal tenderness, in the right lower quadrant and left lower quadrant, rebound tenderness, is not appreciated, involuntary guarding, is not appreciated. 17:10 Back: pain, that is moderate, of the low back area, ROM is painful, with all movement. 17:10 Neuro: Orientation: to person, place \T\ time. Mentation: is normal, Motor: moves all fours, strength is normal, Sensation: is normal. Vital Signs: 16:50 BP 149 / 103; Pulse 90; Resp 18; Temp 98.7(TE); Pulse Ox 99% on R/A; Weight 64.86 kg; ld1 Height 6 ft. 0 in. ; Pain 10/10; 16:50 Body Mass Index 19.39 (64.86 kg, 182.88 cm) ld1 16:50 Pain Scale: Adult ld1 MDM: 17:00 Patient medically screened. cp 18:00 Differential diagnosis: appendicitis, bowel obstruction, diverticulitis, non-specific cp abd pain, pancreatitis, Pyelonephritis, Testicular Torsion, Ureterolithiasis, urinary tract infection. 20:17 Data reviewed: vital signs, nurses notes, lab test result(s), radiologic studies, CT cp scan. 20:17 Consideration of Admission/Observation Escalation of care including cp admission/observation considered. I considered the following discharge prescriptions or medication management in the emergency department Medications were administered in the Emergency Department. See MAR. Counseling: I had a detailed discussion with the patient and/or guardian regarding: the historical points, exam findings, and any diagnostic results supporting the discharge/admit diagnosis, lab results, radiology results, to return to the emergency department if symptoms worsen or persist or if there are any questions or concerns that arise at home. Response to treatment: the patient's symptoms have mildly improved after treatment, and as a result, I will discharge patient. Special discussion: Based on the patient's Hx, exam, and Dx evaluation, there is no indication for emergent surgery or inpatient Tx. It is understood by the patient/guardian that if the Sx's persist or worsen they need to return immediately for re-evaluation. 20:17 ED course: VSS. Pain improved, patient sleeping in exam room. Will discharge to home cp for continued monitoring. 08/22 16:53 Order name: CBC with Diff; Complete Time: 18:40 cp 08/22 18:40 Interpretation: Normal except: WBC 11.40; RBC 3.18; HGB 9.7; HCT 28.2; MPV 7.1; NEUT A cp 8.4. 08/22 16:53 Order name: CMP; Complete Time: 18:40 cp 08/22 18:41 Interpretation: Normal except: GLUC 107; ALK 194; CA 7.7; TP 5.7; ALB 2.9; A/G 1.0. cp 08/22 16:53 Order name: Lipase; Complete Time: 18:40 cp 08/22 16:53 Order name: Urinalysis w/ reflexes; Complete Time: 18:05 cp 08/22 18:41 Interpretation: Normal except: [facility] Extremely Turbid; UBLD 3+ (OVER); UPROT 1+; URBC cp >50; UESTR 25; CAOX Cx Many. 08/22 16:53 Order name: CT Abd/Pelvis - IV Contrast Only; Complete Time: 20:03 cp 08/22 20:04 Interpretation: Report reviewed. cp 08/22 16:53 Order name: IV Saline Lock; Complete Time: 18:14 cp 08/22 16:53 Order name: Labs collected and sent; Complete Time: 18:14 cp 08/22 20:05 Order name: PO challenge; Complete Time: 08:01 cp Administered Medications: 18:14 Drug: NS 0.9% IV 1000 ml Route: IV; Rate: 1 bolus; Site: left antecubital; ld1 19:15 Follow up: Response: No adverse reaction; Marked relief of symptoms; IV Status: pf1 Completed infusion; IV Intake: 1000ml 18:14 Drug: Famotidine IVP 20 mg Route: IVP; Site: left antecubital; ld1 19:15 Follow up: Response: No adverse reaction; Marked relief of symptoms pf1 18:14 Drug: Ondansetron IVP 4 mg Route: IVP; Site: left antecubital; ld1 19:15 Follow up: Response: No adverse reaction; Marked relief of symptoms pf1 18:14 Drug: Ketorolac IVP 15 mg Route: IVP; Site: left antecubital; ld1 19:15 Follow up: Response: No adverse reaction; Marked relief of symptoms; Pain is decreased pf1 Disposition Summary: 08/22/22 20:18 Discharge Ordered Location: Home cp Problem: new cp Symptoms: have improved cp Condition: Stable cp Diagnosis - Constipation, unspecified cp - Nausea with vomiting, unspecified cp - Hematuria, unspecified cp - Calculus of kidney cp Followup: cp - With: Miguel Storey MD - When: 2 - 3 days - Reason: Recheck today's complaints Discharge Instructions: - Discharge Summary Sheet cp - Constipation, Adult cp - Hematuria, Adult cp - Kidney Stones cp - Nausea and Vomiting, Adult cp Forms: - Medication Reconciliation Form cp - Thank You Letter cp - Antibiotic Education cp - Prescription Opioid Use cp Prescriptions: - Miralax 17 gram Oral powder in packet - take 1 packet by ORAL route daily for 8-10 days; 10 packet; Refills: 0, Product cp Selection Permitted - Zofran 4 mg Oral Tablet - take 1 tablet by ORAL route every 12 hours As needed; 20 tablet; Refills: 0, cp Product Selection Permitted Addendum: 08/25/2022 12:58 Co-signature as Attending Physician, Daniele Franco DO I was immediately available on-site m s3 in the Emergency Department for consultation in the care of the patient. Signatures: Dispatcher [employer] EDMS Mahesh Walker PA PA cp Sims, Marcus, DO NARAYAN ms3 Misti Franco RN RN ld1 Michelle Garcia RN pf1 Corrections: (The following items were deleted from the chart) 08/22 18:41 18:41 Normal except: GLUC 107. cp cp
--- NOTE | 2022-08-22 20:18 | ER ---
Nurse's Notes [facility] Name: George Barkley Age: 37 yrs Sex: Male : 1985 Arrival Date: 08/22/2022 Time: 16:20 Bed Treatment Private MD: Diagnosis: Constipation, unspecified;Nausea with vomiting, unspecified;Hematuria, unspecified;Calculus of kidney Presentation: 08/22 16:50 Chief complaint: Patient states: MEGAN flank pain X 2 days. ABD pain since this morning. ld1 N/V. Coronavirus screen: At this time, the client does not indicate any symptoms associated with coronavirus-19. Ebola Screen: No symptoms or risks identified at this time. Initial Sepsis Screen: Does the patient meet any 2 criteria? No. Patient's initial sepsis screen is negative. Does the patient have a suspected source of infection? No. Patient's initial sepsis screen is negative. Risk Assessment: Do you want to hurt yourself or someone else? Patient reports no desire to harm self or others. Onset of symptoms was August 22, 2022. 16:50 Method Of Arrival: Ambulatory ld1 16:50 Acuity: JESSICA 3 ld1 Triage Assessment: 16:52 General: Appears in no apparent distress. uncomfortable, Behavior is cooperative, ld1 anxious. Pain: Complains of pain in low back area and abdomen Pain does not radiate. Pain currently is 10 out of 10 on a pain scale. Quality of pain is described as throbbing. EENT: No signs and/or symptoms were reported regarding the EENT system. Neuro: Level of Consciousness is awake, alert, obeys commands, Oriented to person, place, time, situation. Cardiovascular: Capillary refill < 3 seconds Patient's skin is warm and dry. Respiratory: Airway is patent Respiratory effort is even, unlabored. GI: Abdomen is flat, non-distended. GI: Reports nausea, vomiting. : No signs and/or symptoms were reported regarding the genitourinary system. Derm: No signs and/or symptoms reported regarding the dermatologic system. Musculoskeletal: No signs and/or symptoms reported regarding the musculoskeletal system. Historical: - Allergies: 16:52 No Known Allergies; ld1 - PMHx: 16:52 None; ld1 - PSHx: 16:52 Gastric bypass; ld1 - Immunization history:: Adult Immunizations up to date, Client reports receiving the 2nd dose of the Covid vaccine. - Social history:: Smoking status: Patient denies any tobacco usage or history of. Patient/guardian denies using tobacco, Patient uses street drugs, Oxycodone, Patient/guardian denies using alcohol. Screenin:52 [facility] ED Fall Risk Assessment (Adult) History of falling in the last 3 months, nj1 including since admission No falls in past 3 months (0 pts) Confusion or Disorientation No (0 pts) Intoxicated or Sedated No (0 pts) Impaired Gait No (0 pts) Mobility Assist Device Used No (0 pt) Altered Elimination No (0 pt) Score/Fall Risk Level 0 - 2 = Low Risk Oriented to surroundings, Maintained a safe environment, Hourly rounding (assess needs \T\ fall precautionary measures) done. Abuse screen: Denies threats or abuse. Denies injuries from another. Nutritional screening: No deficits noted. Tuberculosis screening: No symptoms or risk factors identified. Assessment: 18:15 Reassessment: Patient appears in no apparent distress at this time. Patient and/or nj1 family updated on plan of care and expected duration. Pain level reassessed. Patient is alert, oriented x 3, equal unlabored respirations, skin warm/dry/pink. 18:45 Reassessment: Patient appears in no apparent distress at this time. Patient and/or nj1 family updated on plan of care and expected duration. Pain level reassessed. Patient is alert, oriented x 3, equal unlabored respirations, skin warm/dry/pink. Pt sleeping. Vital Signs: 16:50 BP 149 / 103; Pulse 90; Resp 18; Temp 98.7(TE); Pulse Ox 99% on R/A; Weight 64.86 kg; ld1 Height 6 ft. 0 in. ; Pain 10/10; 16:50 Body Mass Index 19.39 (64.86 kg, 182.88 cm) ld1 16:50 Pain Scale: Adult ld1 ED Course: 16:24 Patient arrived in ED. am2 16:25 Mahesh Walker PA is PHCP. cp 16:25 Daniele Franco DO is Attending Physician. cp 16:51 Triage completed. ld1 16:52 Arm band placed on right wrist. ld1 18:08 Maycol, Kae, RN is Primary Nurse. nj1 18:13 Inserted saline lock: 20 gauge in left antecubital area, using aseptic technique. Blood zm collected. 18:14 CBC with Diff Sent. zm 18:14 CMP Sent. zm 18:14 Lipase Sent. zm 18:14 Initial lab(s) drawn, by me, sent to lab. zm 18:45 Patient has correct armband on for positive identification. Bed in low position. Call nj1 light in reach. Adult w/ patient. 18:50 Thermoregulation: warm blanket given to patient. nj1 19:30 No provider procedures requiring assistance completed. pf1 19:35 CT Abd/Pelvis - IV Contrast Only In Process Unspecified. EDMS 20:16 Miguel Storey MD is Referral Physician. cp 21:00 IV discontinued, intact, bleeding controlled, No redness/swelling at site. Pressure pf1 dressing applied. Administered Medications: 18:14 Drug: NS 0.9% IV 1000 ml Route: IV; Rate: 1 bolus; Site: left antecubital; ld1 19:15 Follow up: Response: No adverse reaction; Marked relief of symptoms; IV Status: pf1 Completed infusion; IV Intake: 1000ml 18:14 Drug: Famotidine IVP 20 mg Route: IVP; Site: left antecubital; ld1 19:15 Follow up: Response: No adverse reaction; Marked relief of symptoms pf1 18:14 Drug: Ondansetron IVP 4 mg Route: IVP; Site: left antecubital; ld1 19:15 Follow up: Response: No adverse reaction; Marked relief of symptoms pf1 18:14 Drug: Ketorolac IVP 15 mg Route: IVP; Site: left antecubital; ld1 19:15 Follow up: Response: No adverse reaction; Marked relief of symptoms; Pain is decreased pf1 Medication: 19:30 VIS not applicable for this client. pf1 Intake: 19:15 IV: 1000ml; Total: 1000ml. pf1 Outcome: 20:18 Discharge ordered by . cp 21:00 Discharged to home ambulatory, with family. pf1 21:00 Condition: improved 21:00 Discharge instructions given to patient, family, Instructed on discharge instructions, pf1 follow up and referral plans. Demonstrated understanding of instructions, follow-up care. 22:34 Patient left the ED. pf1 Signatures: Dispatcher [employer] EDMS Page, Mahesh, PA PA cp See, Gemini am2 Misti Franco RN RN ld1 Richa Johns Pamala RN RN pf1 Kae Severino RN RN nj1
[2022-08-22 23:45] VITALS: BP 149/103; TEMP 98.7; O2SAT 99
== END 2022-08-22 22:34 | disposition home or self-care (01) ==
LOC: ER 16:20
DX: K59.00 Constipation, unspecified (principal); R31.9 Hematuria, unspecified; N20.0 Calculus of kidney
CPT/HCPCS: 36415; 74177; 80053; 81001; 83690; 85025; 96361; 96374; 96375; 99284; J2405; J7030; Q9967

== ENCOUNTER 2022-09-14 11:29 | Emergency (ER) | payer SELFPAY ==
--- OUTSIDE RECORDS SUMMARY | 2022-09-14 11:33 | XMS REPORT | Continuity of Care Document ---
:1985 Author Organization [facility] t Address [address] [facility] [address] [place] [address] Care Team Providers Name Role Phone CAMMY [...] Policy Number Effective Date Expiration Date S [facility] MEDICAID PENDING PENDING 2022 2022 00:00:00 00:00:00 [place] - [id number] 2020 2020 OUT OF STATE 00:00:00 00:00:00 [...] rs active active ity of problems problems [facility] Lumbar Lumbar Problem Active [place] back back [...] Type Date Date Clinician Sulfa DA Active [place] ABDOM 2021-03 [facility] (Sulfona PAIN/CRAMPS 0-19 Misael ar mide 00:00: Dumont Antibiot 00 Regiona ics) [facility] Sulfa DA Active [place] ABDOM 2021-03 [facility] (Sulfona PAIN/CRAMPS 0-18 Misael ar mide 00:00: Dumont Antibiot 00 Regiona ics) [facility] NO KNOWN Drug Active Univers ALLERGIE Class ity of S [facility] Social History Social Habit Start Date Stop Date Quantity Comments Source History SDOH Social [facility] Medical B ranch Together History SDOH Social [facility] Medica l Branch History SDOH Social Unive rsity of [facility] h Membership History SDOH Social Unive rsity of [facility] Meetings [facility] freddy Branch Exposure to 2022-05-12 2022-05-22 Not sure [facility] SARS-CoV-2 (event) 00:00:00 14:12:00 Medica l Branch History SDOH Alcohol 2022-05-20 2022-05-20 3 [facility] Frequency 00:00:00 00:00:00 Medical Branch History SDOH Alcohol 2022-05-20 2022-05-20 1 [facility] Std Drinks 00:00:00 00:00:00 Medical Branch History SDOH Alcohol 2022-05-20 2022-05-20 1 Univ ers[facility] Binge 00:00:00 00:00:00 Medical Branch History SDOH Social 2022-05-20 2022-05-20 5 [facility] Connections Phone 00:00:00 00:00:00 Medical Branch History SDOH Social 2022-05-20 2022-05-20 7 [facility] [place] Connections Living 00:00:00 00:00:00 Medica l Branch History SDOH Physical 2022-05-20 2022-05-20 0 [facility] Activity DPW 00:00:00 00:00:00 Medical Bran ch History SDOH Physical 2022-05-20 2022-05-20 0 [facility] Activity MPS 00:00:00 00:00:00 Medical Bran ch History SDOH 2022-05-20 2022-05-20 5 [facility] Financial 00:00:00 00:00:00 Medical Branch History SDOH Food 2022-05-20 2022-05-20 1 [facility] 00:[facility] 00:00:00 Medical Branch History SDOH Food 2022-05-20 2022-05-20 1 Univers [facility] Scarcity 00:00:00 00:00:00 Medical Branch History SDOH 2022-05-20 2022-05-20 2 [facility] Transport Med 00:00:00 00:00:00 Medical Bra nch History SDOH 2022-05-20 2022-05-20 2 [facility] Transport Non-Med 00:00:00 00:00:00 Medical Branch Sex Ass[birth year] At [birth year] [facility] 00:00:00 00:00:00 Medical Branch Smoking Status Start Date Stop Date Source Tobacco smoking consumption [facility] Medical unknown Branch Medications Ordered Filled Start Stop Current Ordering Indication Dosage Frequency Signature Comments Components Source Medication Medication Date Date Medication? Clinician (SIG) Name Name naproxen Yes naproxen Unive rs 500 mg 3-09 500 mg ity of tablet 14:48: tablet [place] 25 Take 1 Medical tablet BY Branch [...] o f 21 mg/24 hr 04:00: Administer [place] patch 1 00 over 24 Medical Patch Hours, Branch Q24H, First dose on Thu05/21/22 at 2200, Until Discontinu ed, Routine phenoL Yes 1{spray 1 [place], Univ ers (SORE 05-22 } Oral, PRN, ity of THROAT 03:31: Starting [place] (PHENOL)) 10 on Thu Medical 1.4 % spray 05/21/22 at [facility] bottle 1 2131, [place] Until Discontinu ed, Routine, Sore throat buprenorphi 2022- No [id number] 4mg Place 2 Univers ne HCL 2 mg 05-22 tablets ity of sublingual 00:00: 04:59 under the [place] tablet 00 :00 tongue in Medical the Branch morning and 2 tablets in the evening. Do all this for 4 days. propranoloL 2022- No [id number] 10mg Take 1 Univers 10 mg 05-22 tablet by ity of tablet 00:00: 04:59 mouth in [place] 00 :00 the Medical morning Branch and 1 tablet in the evening. Do all this for 4 days. buprenorphi 0 2022- No [id number] 4mg Place 2 Univers ne HCL 2 mg 05-22 tablets ity of sublingual 00:00: 04:59 under the [place] tablet 00 :00 tongue in Medical the Branch morning and 2 tablets in the evening. Do all this for 4 days. propranoloL 2022- No [id number] 10mg Take 1 Univers 10 mg 05-22 [...] 200 mg in 17:00: 19:04 ?70 kg [place] NaCl 0.9% 00 :44 (6.3 Medical (NS) [...] mcg/kg/min ity of 10:36: 01:21 ?70 kg [place] 22 :18 (2.1-21 Medical mL/hr), IV Branch [...] mouth 3 ity of tablet 00:00: (three) [place] 00 times Medical daily. Branch traMADoL 50 2020-03 Yes 50mg Take 50 mg Univers mg tablet 2-16 by mouth 2 ity of 00:00: (two) [place] 00 times Medical daily. Branch cyclobenzap 2020-03 Yes 10mg Take 10 mg Univers rine 10 mg 2-16 by mouth 3 ity of tablet 00:00: (three) [place] 00 times Medical daily. Branch traMADoL 50 2020-03 Yes 50mg Take 50 mg Univers mg tablet 2-16 by mouth 2 ity of 00:00: (two) [place] 00 times Medical daily. Branch Meloxicam Meloxicam [...] Filled Immunization Date Status Comments [facility] e Immunization Name Name TD 2021-03-18 Completed [facility] 00:00:00 [facility] TDAP 2021-03-18 Completed [facility] 00:00:00 [facility] TDAP 2021-03-18 Completed [facility] 00:00:00 [facility] SARS-COV-2 COVID-19 2020-06-11 Completed Unive rsity of PFIZER VACCINE 00:00:00 [facility] SARS-COV-2 COVID-19 2020-06-11 Completed Unive rsity of PFIZER VACCINE 00:00:00 [facility] SARS-COV-2 COVID-19 2020-06-11 Completed Unive rsity of PFIZER VACCINE 00:00:00 [facility] SARS-COV-2 COVID-19 2020-05-21 Completed Unive rsity of PFIZER VACCINE 00:00:00 [facility] SARS-COV-2 COVID-19 2020-05-21 Completed Unive rsity of PFIZER VACCINE 00:00:00 [facility] SARS-COV-2 COVID-19 2020-05-21 Completed Unive rsity of PFIZER VACCINE 00:00:00 [facility] Vital Signs Vital Name Observation Time Observation Value Comments Source Systolic blood 2022-05-22 14:00:00 141 mm[Hg] Univer sity of pressure [facility] Diastolic blood 2022-05-22 14:00:00 96 mm[Hg] Unive rsity of pressure [facility] Heart rate 2022-05-22 14:00:00 76 /min [facility] Body temperature 2022-05-22 14:00:00 36.5 [facility] Respiratory rate 2022-05-22 14:00:00 26 /min [facility] Oxygen saturation in 2022-05-22 14:00:00 97 /min [facility] Arterial blood by [facility] Pulse oximetry [place] Body height 2022-05-20 06:00:00 185.4 cm [facility] Body weight 2022-05-20 06:00:00 70 kg [facility] BMI 2022-05-20 06:00:00 20.36 kg/m2 [facility] Systolic blood 2021-03-18 19:15:00 137 mm[Hg] Univer sity [facility] Diastolic blood 2021-03-18 19:15:00 83 mm[facility]Hg] [facility] 2021-03-18 19:15:00 70 /min [facility] Body temperature 2021-03-18 19:15:00 36.44 [facility] Respiratory rate 2021-03-18 19:15:00 16 /min [facility] Body height 2021-03-18 19:15:00 185.4 cm [facility] Body weight 2021-03-18 19:15:00 70.534 kg [facility] BMI 2021-03-18 19:15:00 20.52 kg/m2 [facility] Oxygen saturation in 2021-03-18 19:15:00 100 /min [facility] blood by [facility] Pulse oximetry Branch Procedures Procedure Date / Time Performing Clinician Source Performed BASIC METABOLIC PANEL 2022-05-21 10:07:00 Bert Kendrick [facility] (NA, K, CL, CO2, Medical Branch GLUCOSE, BUN, CREATININE, CA) ACUTE CARE ARTERIAL 2022-05-21 10:07:[address] [facility] BLOOD GAS Medical Branch CBC WITHOUT DIFF 2022-05-21 10:07:00 Bert Kendrick [facility] CT HEAD WO CONTRAST 2022-05-21 06:17:00 Bridgette Hatch [facility] XR KUB 2022-05-20 17:43:00 Bridgette Hatch [facility] XR KUB 2022-05-20 15:09:00 Faina Rothman [facility] XR ANKLE <3 VW LEFT 2022-05-20 15:09:00 Bert Kendrick [facility] XR TIBIA FIBULA 2 VW 2022-05-20 15:09:00 Bert Kendrick [facility] BLOOD CULTURE SCREEN 2022-05-20 11:46:00 Merry Gonzalez [facility] URINE DRUG (IMMUNOASSAY) 2022-05-20 11:46:00 [facility] SCREEN URINALYSIS 2022-05-20 11:46:00 [facility] 1 VW 2022-05-20 07:15:00 [facility] CHEST 1 VW 2022-05-20 07:15:00 [facility] CREATINE KINASE 2022-05-20 06:59:00 Faina Rothman [facility] COMP. METABOLIC PANEL 2022-05-20 06:59:00 Merry Gonzalez [facility] ([id number]) [facility] CBC WITH DIFF 2022-05-20 06:59:00 [facility] PROTHROMBIN TIME / INR 2022-05-20 06:59:00 Merry Gonzalez [facility] ACTIVATED PARTIAL 2022-05-20 06:59:00 Merry Gonzalez [facility] THRMPLAS ERNESTINA [facility] MRSA / MSSA SCREEN BY 2022-05-20 06:59:00 [facility] [id number] 2022-01-01 00:00:00 SIGIFREDO CASTILLO [facility] [id number] 2022-01-01 00:00:00 SIGIFREDO CASTILLO [facility] TDAP VACCINE, >11 YRS, 2021-03-18 19:24:42 Cammy Solano [facility] Physical Therapy 2018-02-02 00:00:00 [facility] Spine cervical wo 2018-02-02 00:00:00 [facility] contrast [id number] MRI Spine lumbar wo 2018-02-02 00:00:00 [facility] contrast [id number] MR Elbow wo contrast 2018-02-02 00:00:00 [facility] [id number] Encounters Start End Encounter Admission Attending Care Care Encounter Source Date/Time Date/Time Type Type Clinicians Facility Department ID 2022-09-12 2022-09-12 Outpatient [facility] [id number] Jose 16:47:14 16:47:14 [id number] F Denny 2022-08-28 2022-08-28 Outpatient [facility] [id number] Jose 09:00:23 09:00:23 [id number] F Denny 2022-08-27 2022-08-27 Outpatient [facility] [id number] Jose 16:17:46 16:17:46 [id number] F [place] 2022-06-30 2022-06-30 Outpatient [facility] [id number] Jose 11:48:01 11:48:01 [id number] F [place] 2022-06-02 2022-06-02 Outpatient [facility] [id number] Jose 11:31:31 11:31:31 [id number] F [place] 2022-05-26 2022-05-26 Outpatient [facility] [id number] Jose 11:38:32 11:38:32 [id number] [facility] 2022-05-23 2022-05-23 Transition MICHA Fletcher [id number] Univers 00:00:00 00:00:00 of Care Tri VELAS[place] [id number] [id number] [id number] Branch 2022-05-20 2022-05-22 Inpatient U KARIS HUNTLEY [facility] MPU [id number] Univers 00:15:00 14:30:00 KARIS HUNTLEY i ty of [facility] 2022-05-20 2022-05-22 [facility] NISHANT Huntley [id number] Univers 00:15:00 14:30:00 Encounter Karis KAHN [id number] ity of HOSPITAL 4.2.7.2.686 Ricardo as [id number] [facility] 086 Branch 2021-12-31 2022-01-02 [facility] [id number] [facility] 19:28:00 19:22:[address] [place] [address] 2021-03-18 2021-03-18 Outpatient CAMMY HERNANDEZ [facility] [id number] Univers 13:00:00 15:01:19 ity [facility] 2021-03-18 2021-03-18 Office Cammy Solano [id number] Univers 13:00:00 13:30:00 Visit Ali PEDIATRIC 350.1.13.10 ity [place] [id number] [facility] PRIMARY 314 Branch CARE CLINIC 2021-03-18 2021-03-18 Outpatient CAMMY HERNANDEZ [facility] [id number] Univers 13:00:00 13:00:00 ity [facility] 2021-03-15 2021-03-15 Outpatient CHARANJIT BELLO [facility] [id number] Univers 14:00:00 14:00:00 ity [facility] 2021-03-15 2021-03-15 Outpatient CHARANJIT BELLO [facility] [id number] Univers 14:00:00 14:00:00 ity [facility] 2020-06-11 2020-06-11 Outpatient Lito OLIVAS [facility] [id number] Univers 07:00:00 07:00:00 JENNIE ity [facility] 2020-05-21 2020-05-21 Outpatient Lito OLIVAS [facility] [id number] Univers 12:40:00 12:40:00 JENNIE [facility] 2018-11-17 2018-11-17 AppointARMEN [facility] [id number] [place] 10:00:00 10:00:00 tSHANNON TODD M.D. [facility] Howie Marie M.D. 2018-05-13 2018-05-13 Appointmen ANGELISCOTTIE ARMEN UTP [id number] [place] 13:15:00 13:15:00 t; SHANNON DAWKINS M.D. Physici ZORAN, ans M.D. 2018-03-25 2018-03-25 AppointARMEN [facility]TP [id number] [place] 11:15:00 11:15:00 t; SHANNON DAWKINS M.D. [facility] Luz Elena ORTEGA [place] julio c Matthews 2018-03-17 2018-03-17 AppointARMEN Kerr [facility] [id number] [place] 10:45:00 10:45:00 t; SHANNON DAWKINS M.D. Physici ZORAN, ans M.D. 2018-02-02 2018-02-02 Appointjennifer MARIZAARMEN [facility] [id number] [place] 07:30:00 07:30:00 t; SHANNON DAWKINS M.D. [facility] Luz [facility] julio c [place] Results Test Description Test Time Test Comments Results Result Comments Source HEPATITIS A IgM 2022-05-24 09:47:43 Test Item Value Reference Range Interpretation Comme nts HEPATITIS A IgM (test NON-REACTIVE NON-REACTIVE C PL has important pathology code = 2728) staff changes e ffective 05/14/2022. New patholo gy staff will provide uninter rupted, excellent patient care an d clinical consultation. S ee URL: [email or web address]. UNLESS OTHERWIS E INDICATED, ALL TESTING PERFORM ED AT CLINICAL PATHOLOGY [facility]. [address] [place] [address] LABORATORY DIRE CTOR: TREY ESCALONA M.D. C EDNA NUMBER [id number] [place]. [id number] HIV 1/2 4TH GEN, RFLX [id number] 09:47:43 Test Item Value Reference Range Interpretation Comments HIV 1/2 4TH GEN, RFLX CONF (test NON-REACTIVE NON-REACTIVE code = 3514) HEPATITIS PANEL, [id number] 09:47:43 Test Item Value Reference Interpretation Comments [...] (test consisten t with immunity code = 16033) to hepatitis B from previous hepati tis B vaccination. INTERPRETATION (NOTE) Hepatitis C serology HEPATITIS C: (test shows no evidence of code = 67439) exposure to he patitisC virus at this t yosef. It can take up to 12 months after exposure tothe hepatitis C vir us for antibodies to b ecome detectable in t he blood in certain shelly ents. COMPREHENSIVE METABOLIC [id number] 05:23:47 Test Item Value Reference Range Interpretation Comments GLUCOSE (test code = 75 MG/DL 70-99 2216) BUN (test code = 10 MG/DL 6-20 2207) CREATININE (test 0.61 MG/DL 0.80-1.40 L code = 2214) eGFR (2020 CKD-EPI) 127 >60 (test code = 81133) ML/MIN/1.73 CALC BUN/CREAT (test 16 RATIO 6-28 code = 2235) SODIUM (test code = 141 MEQ/L 562-819 7574) POTASSIUM (test code 3.4 MEQ/L 3.5-5.4 L = 2227) CHLORIDE (test code 98 MEQ/L 95-107 = 2215) CARBON DIOXIDE (test 27 MEQ/L 19-31 code = 2206) CALCIUM (test code = 8.6 MG/DL 8.5-10.5 2208) PROTEIN, TOTAL (test 6.1 G/DL 6.1-8.3 code = 222) ALBUMIN (test code = 3.8 G/DL 3.5-5.2 2200) CALC GLOBULIN (test 2.3 G/DL 1.9-3.7 code = 2240) CALC A/G RATIO (test 1.7 RATIO 1.0-2.6 code = 2234) BILIRUBIN, TOTAL 0.3 MG/DL See_Comment [Automated message] (test code = 2206) The syste m which generated this result transmit na reference range : <=1.2. The refe rence range was not u sed to interpret th is result as normal/abnormal . ALKALINE PHOSPHATASE 187 U/L 40-117 H (test code = 2203) AST (test code = 25 U/L 9-50 2217) ALT (test code = 20 U/L 5-50 2218) CBC W/AUTO DIFF WITH [id number] 02:42:28 Test Item Value Reference Range Interpretation [...] RBCS 0.00 K/UL 0.00-0.11 (test code = 18270) Acute Care Arterial Blood Gas.2022-05-21 10:15:53 Test Item Value Reference Range Interpretation Comments PH (test code = 2) 7.49 7.35-7.45 H PCO2 (test code = 32 See_Comment L [Automate d message] [id number]) The system [employer] generated this result transmitted ref erence range: 35 - 45 mmHg. The reference r jennifer was not used to interpret this result as normal/abnor mal. PO2 (test code = 189 See_Comment H [Automated message] 2287019615) The system [employer] generated this result transmitted ref erence range: 80 - 100 mmHg. The reference r jennifer was not used to interpret this result as normal/abnor mal. HCO3 (test code = 24 See_Comment [Automate d message] 5801734759) The system [employer] generated this result transmitted ref erence range: 22 - 26 mEq/L. The reference r jennifer was not used to interpret this result as normal/abnor mal. BE (test code = 1.2 See_Comment [Automated message] 4548961924) The system [employer] generated this result transmitted ref erence range: -3.0 - 3 .0 mEq/L. The refe rence range was not u sed to interpret this result as normal/abnor mal. Lab Interpretation (test Abnormal code = 48955-0) [facility] [id number] 16:29:01 Test Item Value Reference Range Interpretation Comments CK (test code = 8692735282) 171 U/L 33-194 Lab Interpretation (test code = Normal 15945-3) [facility] (92281)2022-05-20 07:40:45 Test Item Value Reference Range Interpretation Comments NA (test code = 134 mmol/L 135-145 L 6183276410) K (test code = 3.6 mmol/L 3.5-5.0 2378171724) CL (test code = 105 mmol/L 98-108 0347624405) CO2 TOTAL (test code = 26 mmol/L 23-31 6878247171) AGAP (test code = 3 2-16 4647124296) BUN (test code = 7 mg/dL 7-23 5017137567) GLUCOSE (test code = 104 mg/dL 70-110 9003645946) CREATININE (test code = 0.66 mg/dL 0.60-1.25 8723146342) TOTAL BILI (test code = 0.4 mg/dL 0.1-1.4 8749741631) CALCIUM (test code = 7.5 mg/dL 8.6-10.6 L 3412904376) T PROTEIN (test code = 5.1 g/dL 6.3-8.2 L 8167900198) ALBUMIN (test code = 2.8 g/dL 3.5-5.0 L 0128818133) ALK PHOS (test code = 143 U/L 34-122 H 8845534854) ALTv (test code = 22 U/L 5-50 1742-6) AST(SGOT) (test code = 31 U/L 13-40 6571022101) eGFR (test code = 135.8 mL/min/1.73m2 6429086534) KAILA (test code = KAILA) Association of [...] tests). Lab Interpretation Abnormal (test code = 22330-9) [facility] WITH [id number] 07:20:05 Test Item Value Reference Range Interpretation Comments WBC (test code = 17.15 See_Comment H [Automated 7067-2) message] The system which generated this result transmit na reference range : 4.20 - 10.70 10*3/?L. The reference range was not used to interpret this result as normal/abnormal . RBC (test code = 4.01 See_Comment L [Automated 099-8) message] The system which generated this result [...] RDW-SD (test code = 45.3 fL 38.5-51.6 24060-4) RDW-CV (test code = 14.9 % 12.1-15.4 788-0) PLT (test code = 226 See_Comment [Automated 777-3) message] The system which generated this result transmit na reference range : 150 - 328 10*3/ ?L. The reference range was not u sed to interpret th is result as normal/abnormal . MPV (test code = 8.9 fL 9.8-13.0 L 46138-9) NRBC/100 WBC (test 0.0 See_Comment [Automat ed code = 3797870263) message] The system which generated this result transmit na reference range : 0.0 - 10.0 /100 WBCs. The reference range was not used to interpret this result as normal/abnormal . NRBC x10^3 (test code See_Comment [Auto mated = 8872923014) message] The system which generated this result transmit na reference range : 10*3/?L. The reference range was not used to interpret this result as normal/abnormal . GRAN MAT (NEUT) % 80.1 % (test code = 770-8) IMM GRAN % (test code 0.80 % = 5841289481) LYMPH % (test code = 11.7 % 736-9) MONO % (test code = 7.1 % 5905-5) EOS % (test code = 0.1 % 713-8) BASO % (test code = 0.2 % 706-2) GRAN MAT x10^3(ANC) 13.73 10*3/uL 1.99-6.95 H (test code = 4855651240) IMM GRAN x10^3 (test 0.14 10*3/uL 0.00-0.06 H code = 2533110060) LYMPH x10^3 (test code 2.01 10*3/uL 1.09-3.23 = 731-0) MONO x10^3 (test code 1.21 10*3/uL 0.36-1.02 H = 742-7) EOS x10^3 (test code = 0.06-0.53 L 711-2) BASO x10^3 (test code 0.04 10*3/uL 0.01-0.09 = 704-7) Lab Interpretation Abnormal (test code = 17502-2) [facility] THRMPLAS [id number] 07:20:04 Test Item Value Reference Range Interpretation Comments APTT Patient (test code 22 See_Comment L [Au tomated message] = 9133-2) The system ic h generated this result transmitted ref erence range: 26 - 36 Seconds. The reference range was not used to int erpret this result as normal/abnormal . Lab Interpretation (test Abnormal code = 37302-6) [facility] Hospital[facility]th[facility]bin Time / [id number] 07:20:04 Test Item Value Reference Range Interpretation Comments PROTIME PATIENT (test 13.8 See_Comment H [Auto mated message] code = 5964-2) The system [employer] generated this result transmitted ref erence range: 10.1 - 1 2.6 Seconds. The reference range was not used to int erpret this result as normal/abnormal . INR (test code = 6301-6) 1.2 Nor mal INR <1.1; Warfarin Therap eutic range 2.0 to 3. 0 or 2.5 to 3.5, dep ending upon the indica tions. Lab Interpretation (test Abnormal code = 81006-4) [facility]OLIC [id number] 08:16:00 Test Item Value Reference Range Interpretation [...] 8.6 mg/dL 8.0-10.5 N CA) CBC W/AUTO [id number] 07:02:00 Test Item Value Reference Range Interpretation [...] NO = MDIFF) DRUGS OF ABUSE SCREEN [id number] 05:13:00 Test Item Value Reference Range Interpretation [...] ed for non-medical pur poses. COMPREHENSIVE METABOLIC [id number] 05:09:00 Test Item Value Reference Range Interpretation [...] 20-125 H TOTAL (test code = ALKP) [id number] 05:09:00 Test Item Value Reference Range Interpretation Comments PHOSPHOROUS (test code = PHOS) 4.4 MG/DL 2.5-4.9 N [id number] 05:09:00 Test Item Value Reference Range Interpretation Comments MAGNESIUM (test code = MAG) 1.74 mg/dL 1.80-2.40 L CBC W/AUTO [id number] 04:55:00 Test Item Value Reference Range Interpretation [...] NO = MDIFF) - XR FLUOROSCOPY 0-60 [id number] 00:00:00 [facility] : 1985 Sex: M FAX: Kevin Fernandez DO [phone] [place]: St: [facility] FAX: Melvin Vasquez [facility] [phone] Name: NICKOLAS MULLINS [facility] Ethan Dumont : 1985 Age/S: 36/M [address] [place] [address] Unit #: [id number] Loc: Ale[address] [place] [address]Jzjd: RomainMelvin Tanja [facility] Acct: [id number] Dis Date: Status: ADM IN PHONE #: [phone] Exam Date: 01/01/2022 190 FAX #: [phone] Reason: LEFT TIB FIB OPEN FRACTURE EXAMS: CPT CODE: [id number] XR FLUOROSCOPY 0-60 MIN 29656 PROCEDURE INFORMATION: Exam: FL Fluoroscopy, Up to 1 Hour Physician Time; Radiologist Not Present For Fluoroscopy Exam date and time: 01/01/2022 6:20 PM Age: 36 years old Clinical indication: Pain; Pain: Left tib fib open fracture TECHNIQUE: Imaging protocol: Fluoroscopy , up to 1 hour physician or other qualified health rental boats caretaker time. This radiologist did not supervise this procedure. Exam supervised by facility personnel. Report for radiation dosage reporting and documentation only. Other technique: Radiologist was not present during this procedure. COMPAR RAMOS: No relevant prior studies available. RADIATION DOSE METRICS: Fluoroscopy time (seconds): seconds= 1 MIN 32 SEC Number of fluoro spot images: images= 13 Reference air kerma (DESMOND): 3.96 MGY FINDINGS: Procedural imaging: Fluoroscopic assistance was provided. Radiologist was not present during the procedure. Intraoperative review of these images was performed by the operating physician. Please refer to the procedure report for further details. Notes: Fluoroscopy supervised by facility personnel. See also separate procedure report. IMPRESSION: Fluoroscopy dosage documentation. See also separate procedure notes. at 2111 Reported and signed by: Davis Leary M.D. CC: Kevin Fernandez DO; Melvin Agrawal [facility] Romain Technologist: CHARLOTTE Tena) Trnscrd Date/Time/By: 01/01/2022 (2110) : By: [email or web address] Orig Print D/T: S: 01/01/2022 (0743) PAGE 1 Signed Report- XR TIBIA/FIBULA 2 V [id number] 00:00:00 [facility] 1985 Sex: M FAX: Kevin Fernandez [phone] [place]: St: ADM FAX: Melvin Vasquez [facility] [phone] Name: NICKOLAS MULLINS [facility] : 1985 Age/S: 36/M [address] [place] [address] Unit #: [id number] Loc: [address] [place] [address] Phys: Melvin Hoyos [facility] Acct: [id number] Dis Date: Status: ADM IN PHONE #: [phone] Exam Da te: 01/01/20222014 FAX #: [phone] Reason: Postop EXAMS: CPT CODE: [id number] XR TIBIA/FIBULA 2V LT [id number] PROCEDURE INFORMATION: Exam: XR Left Tibia and Fibula Exam date and time: 01/01/2022 7:58PM Age: 36 years old Clinical indication: Other: Postop TECHNIQUE: Imaging protocol: Radiologic examof the Left tibia and fibula. Views: 2 views. AP and Lateral COMPARISON: CR XR TIBIA/FIBULA 2 V LT 12/31/2021 6:48 PM FINDINGS: Bones/joints: Again seen comminuted fracture through the left tibia alongthe proximal and mid to distal diaphyses. Intramedullary [...] M.D. CC: Kevin Fernandez DO; Melvin Agrawal [facility] Technologist: CHARLOTTE Lawrence) Trnscrd Date/Time/By: 01/01/2022 (2057) : By: [email or web address] Orig Print D/T: S: 01/01/2022 (2057) PAGE 1 Signed Report- XR HAND 3 + V [id number] 00:00:00 [facility] 1985 Sex: M FAX: Danica Valentin APRN [place]: St: [facility] FAX: Kevin Fernandez DO [phone] Name: NICKOLAS MULLINS [facility] : 1985 Age/S: 36/M [address] [place] [address] Unit #: [id number] Loc: [address] [place] [address] Phys: Danica Valentin Acct: [id number] Dis Date: Status: ADM IN PHONE #: [phone] Exam Date: 01/01/20222014 FAX #: [phone] Reason: edema s/p CUSTODIAL EXAMS: CPT CODE: [id number] XR HAND 3 + V RT [id number] PROCEDURE INFORMATION: Exam: XR Right Hand Exam date and time: 01/01/2022 8:12 PM Age: 36 years old Clinical indication: Edema S/P snf TECHNIQUE: Imaging protocol: XR Right hand. Views: 3 or more views. F rontal Oblique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
--- NOTE | 2022-09-14 11:53 | RAD REPORT ---
EXAM DESCRIPTION: Amber Single View09/14/2022 11:45 am CLINICAL HISTORY: Chest pain COMPARISON: May 2022 FINDINGS: The lungs appear clear of acute infiltrate. The heart is normal size IMPRESSION: No acute abnormalities displayed
[2022-09-14 11:56] LABS: Absolute Lymphocytes (CBC) 2.1 K/uL (0.7-4.9); Hematocrit 31.6 % (39.6-49.0); Lymphocytes % 18.4 % (15.3-44.8); RBC Red Blood Cell Count 3.51 M/uL (4.33-5.43)
[2022-09-14] MEDS ORDERED: ONDANSETRON 4 MG/2 ML VIAL ONE ×2 (12:11→13:53)
[2022-09-14] MEDS ORDERED: FAMOTIDINE 20 MG/2 ML VIAL IV ONE (12:11)
[2022-09-14] MEDS ORDERED: NA CHLORIDE 0.9% 1,000 ML ONE (12:11)
[2022-09-14 12:41] LABS: Bilirubin Direct 0.2 mg/dL (0-0.2); Bilirubin Indirect, Calculated 0.1 mg/dL (0.2-0.8); Bilirubin Total 0.3 mg/dL (0.2-1.0); Magnesium 2.2 mg/dL (1.6-2.4); Potassium 3.1 mEq/L (3.5-5.1)
[2022-09-14] MEDS ORDERED: POTASSIUM CL SA 10 MEQ TAB PO ONE (13:00)
[2022-09-14 13:01] LABS: Troponin High Sensitivity 3.5 (<58.9)
[2022-09-14] MEDS ORDERED: MORPHINE 4 MG/ML SYR ONE (13:53)
[2022-09-14 14:00] LABS: Specific Gravity 1.029 (1.005-1.030); Urine Bilirubin NEGATIVE (Negative); Urine Blood Negative (Negative); Urine Clarity Clear (Clear); Urine Color Yellow (Yellow); Urine Glucose NEGATIVE (Negative); Urine Protein NEGATIVE (Negative); Urine Urobilinogen 1+ (Normal); Urine pH 5.5 (5.0-7.0)
[2022-09-14 14:14] LABS: Barbiturates NEGATIVE (NEGATIVE); Benzodiazepines NEGATIVE (NEGATIVE); Cocaine NEGATIVE (NEGATIVE); METHAMPHETAM NEGATIVE (NEGATIVE); Methadone NEGATIVE (NEGATIVE); Opiates NEGATIVE (NEGATIVE); Phencyclidine NEGATIVE (NEGATIVE); THC Cannibis NEGATIVE (NEGATIVE)
--- NOTE | 2022-09-14 14:18 | RAD REPORT ---
EXAM DESCRIPTION: CT - Abdomen Pelvis W Contrast - 09/14/2022 2:02 pm CLINICAL HISTORY: Abdominal pain COMPARISON: August 22, 2022 TECHNIQUE: Computed axial tomography of the abdomen pelvis was obtained. 100 cc Isovue-300 was admin istered intravenously. Oral contrast was not requested which limits evaluation of bowel and appendix All CT scans are performed using dose optimization technique as appropriate and may include automated exposure control or mA/KV adjustment according to patient size. FINDINGS: Fatty liver Spleen, pancreas, adrenals and kidneys unremarkable Gastric bypass. Postsurgical changes lumbar spine. Moderate amount of stool within the colon. Nonspecific edema within mesentery and subcutaneous tissues. Fluid is present throughout the small bowel. The bowel caliber is upper limits normal to mildly dilat ed. The wall of several loops of jejunum mildly thickened. Wall the gallbladder appears mildly thickened. Gallbladder distention IMPRESSION: Fluid throughout the small bowel which is upper limits normal caliber to mildly dilated. Wall of several loops jejunum mildly thickened. A these findings most likely indicate inflammation. Gallbladder distention with mild wall thickening may be related to inflammation or hypoalbuminemia
[2022-09-14] MEDS ORDERED: CIPROFLOXACIN HCL 500 MG TAB ONE (14:54)
[2022-09-14] MEDS ORDERED: metroNIDAZOLE 500 MG TABLET ONE (14:54)
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
[2022-09-14 15:58] VITALS: TEMP 98.3
[2022-09-14 16:00] VITALS: O2SAT 100
[2022-09-14 16:01] VITALS: BP 120/74
--- NOTE | 2022-09-15 19:33 | EKG ---
Test Date: 2022-09-14 Test Time: 11:55:33 Wrapper Selector: TL MEASUREMENT RESULTS: Intervals: Rate: 83 KS: 152 QRSD: 84 QT: 392 QTc: 460 [place]: P: 62 KS: 152 QRS: 78 T: 73 INTERPRETIVE STATEMENTS: Normal sinus rhythm Normal ECG Compared to ECG 05/19/2022 18:00:45 Sinus tachycardia no longer present Myocardial infarct finding no longer present Electronically Signed On 09-15-22 19:29:18 CDT by Chuck Mast
== END 2022-09-14 15:19 | disposition home or self-care (01) ==
LOC: ER 11:29
DX: R10.84 Generalized abdominal pain (principal); E87.6 Hypokalemia; R79.89 Other specified abnormal findings of blood chemistry; R11.11 Vomiting without nausea; K63.89 Other specified diseases of intestine
CPT/HCPCS: 36415; 71045; 74177; 80048; 80076; 80307; 81003; 82077; 82607; 83735; 83880; 84484; 85025; 93005; 99285; J2405; J7030; Q9967